=== PATIENT | male | born 1945 | race Caucasian/White ===

== ENCOUNTER 2023-04-08 23:10 | Inpatient (IN) | payer OTHER, SELFPAY ==
[2023-04-08 20:51] VITALS: BP 132/61
[2023-04-08 20:56] VITALS: BP 132/61
[2023-04-08 21:00] VITALS: BP 135/90
[2023-04-08 21:01] VITALS: BMI 25.5
[2023-04-08 21:07] LABS: % Basophils 0.5 % (0-2); % Eosinophils 0.2 % (0-6); % Immature Granulocytes 0.4 % (0-0.5); % Lymphocytes 16.8 % (20.5-51.1); % Monocytes 8.1 % (1.7-9.3); Absolute Basophils 0.1 10^3/uL (0-0.2); Absolute Lymphocytes 1.6 10^3/uL (1.2-3.4); Absolute Monocytes 0.8 10^3/uL (0.1-0.6); Absolute Neutrophils 7.1 10^3/uL (1.4-6.5); Hematocrit 42.3 % (39.0-52.0); Hemoglobin 15.4 g/dL (13.0-18.0); Mean Corp Hgb Conc. 36.4 g/dL (33.0-37.0); Mean Corpuscular Hgb 34.1 pg (27.0-31.0); Mean Corpuscular Volume 93.6 fL (80.0-94.0); Mean Platelet Volume 10.8 fL (7.4-10.4); Nucleated Red Blood Cells % 0 % (-); Platelet Count 178 10^3/uL (130-400); Red Blood Cell Count 4.52 10^6/uL (4.70-6.10); Red Cell Dist. Width 13.8 % (11.5-14.5); White Blood Cell Count 9.6 10^3/uL (4.8-10.8)
[2023-04-08 21:24] LABS: ALT (SGPT) 88 U/L (0-50); AST (SGOT) 69 U/L (17-59); Albumin 3.9 g/dl (3.5-5.0); Alkaline Phosphatase 64 U/L (38-126); Blood Urea Nitrogen 48 mg/dl (9-20); Calcium 9.3 mg/dl (8.4-10.2); Carbon Dioxide 22 mmol/L (22-30); Chloride 95 mmol/L (98-107); Estimated Creatinine Clearance 27 ml/min; Glucose 230 mg/dl (70-99); Potassium 2.9 mmol/L (3.5-5.1); Sodium 134 mmol/L (135-145); Total Bilirubin 0.9 mg/dl (0.2-1.3); Total Protein 6.5 g/dl (6.3-8.2); eGFR 31.82
[2023-04-08 21:26] LABS: Depakane 91.1 ug/ml (50.0-120.0)
--- NOTE | 2023-04-08 21:29 | ED.GENMED ---
History of Present Illness
General
Chief Complaint: Seizure
Source: patient
Exam Limitations: none
Time Seen by Provider: 04/08/23 21:05
Nursing documentation reviewed up to this point in time: agreed with
Travel History
Have you had any contact with someone who has COVID-19?: No
Do you have any symptoms of coronavirus? Fever > 100 degrees, chills, cough, shortness of breath, sore throat, loss of taste or smell, muscle aches, or headache?: No
History of Present Illness
History of Present Illness:
Patient with history of seizure disorder, presents to ED secondary to sudden onset of nausea and vomiting with confusion, noted by family members this evening. Per family, after dinner, patient was being assisted to his bedroom, secondary to
ongoing gait abnormality, had sudden onset of vomiting, with his eyes rolled backwards, and flaring his arms. Patient never lost consciousness. Patient states that he does recall the event. Denies recent illness. Denies recent change in
medications or diet. Patient is being followed by Dr. Cheema, neurology, secondary to ongoing seizure since September 2022, attributed to potential alcohol use in the past. Since then, patient also has had progressive weight loss with decreased
appetite and loss of balance, along with resting tremor.
Past History
Past History
ED Past Medical History: Cancer (Prostate), HTN, Seizures, Psychiatric (PTSD, anxiety, intentional overdose March 2022) and Other (Pulseless electrical activity March 2022)
ED Past Surgical History: Urological (Prostatectomy) and Other (Hernia repair)
Social History
Tobacco: Former smoker
Alcohol: Former
Drug: None
Personal:
Living: with family
Employment: Retired
Family History
Family History: Other (Reviewed and noncontributory)
Review of Systems
Review of Systems
Allergies reviewed?: Yes
All Other Systems: ROS reviewed and negative except as documented in HPI and ROS
Constitutional: Reports no symptoms
Respiratory: Reports no symptoms
Cardiac: Reports no symptoms
ABD/GI: Reports nausea and vomiting; Denies abdominal pain or diarrhea
: Reports no symptoms
Musculoskeletal: Reports no symptoms
Skin: Reports no symptoms
Neurological: Reports no symptoms
Phy Exam
Physical Exam
Physical Exam:
Physical Exam
General: no apparent distress, not acutely ill. afebrile
Head: nc/at. eomi
Neck: supple. no meningeal signs.
Heart: s1/s2 regular rate and rhythm, no murmur. equal radial pulses.
Lungs: no acute respiratory distress. clear bilaterally
Abdomen: normal bowel sounds. not tender.
Neuro: alert and oriented. no focal neurological deficits. resting tremor noted.
Skin: no rash
Psychiatric: well kept. interactive and cooperative
Extremities: no edema. no calf tenderness.
Course
Orders/Labs/Results
Orders:
Orders
04/08/23 20:55
Electrocardiogram (*1) Urgent
Reason for Study: Other
Other Reason for Exam: seizure
04/08/23 20:56
EKG- Treatment ONCE
04/08/23 20:57
Complete Blood Count/With Diff Urgent
Comprehensive Metabolic Panel Urgent
Creatine Phosphokinase Urgent
Comment: ADD ON
Erythrocyte Sed Rate Urgent
Comment: ADD ON
Magnesium Urgent
04/08/23 21:01
Valproic Acid Level [Depakane] Urgent
04/08/23 21:39
Add On- LAB Urgent
Tests Added?: magnesium
04/08/23 22:17
0.9% Sodium Chloride 1000 ml [Nss] 1,000 ml IV BOLUS
Potassium Chloride [KCl] 40 meq PO NOW STA
04/08/23 22:51
Admit/Transfer Patient As Directed
Co-Sign Provider:
Level of Care: Inpatient admission
Assign to:: Telemetry
Physician / Group: Simone
Diagnosis: DONNY, Hypokalemia, Seizure disorder
Reason for Telemetry: Arrhythmia
Date to Stop Telemetry: 04/11/23
Time to Stop Telemetry: 11:00
Reason for Hospitalization: DONNY, Hypokalemia, Seizure disorder
Expected length of stay greater than two midnights?: Yes
ELOS- Estimated Length of Stay in days: 2
I certify the patient meets the requirements for IP care: Yes
04/08/23 22:59
Code Status As Directed
Resuscitation Status: Do not resuscitate
Reached after discussion with pt or family/Healthcare POA: Yes
Lactic Acid Urgent
04/08/23 23:00
DNR Bracelet Application ONCE
04/09/23 00:18
Acetaminophen [Tylenol] 650 mg PO Q4HPRN PRN
KCl 40 Meq/0.9%Sodchl 1000 ml [NSS with KCL 40 MEQ] 40 meq in 1,000 ml IV 125 mls/hr
Lorazepam [Ativan] 1 mg IV Q4HPRN PRN
Olanzapine [Zyprexa Zydis (Orally Disintegrating)] 2.5 mg PO Q6HPRN PRN
04/09/23 00:18
Consult Notification Routine
Specialty to Notify: Gastroenterology
Date consulting provider notified: 04/09/23
Time consulting provider notified: 08:15
Notified:: Provider
GASTROINTESTINAL CONSULT Routine
Consulting Provider: Demi Tanner
Was physician already notified: No
Reason for consult: GI Bleed
NEUROLOGY CONSULT Routine
Consulting Provider: Gabino Cheema
Was physician already notified: Yes
Reason for consult: Seizure disorder, Movement disorder
Activity As Directed
Activity Level: Ambulate
With Assistance
Bladder Scan As Directed
Follow Bladder Retention/Intermittent Cath Algorithm?: Yes
PRN if no void in __ hours: 6
Frequency: Per Retention Algorithm
If Bladder Scan Result >: 400
then:: Straight cath
EKG with chest pain [ECG as needed] As Directed
ECG as needed for:: Chest Pain
Hemetest Stools As Directed
I/O [Intake/ Output] As Directed
Frequency: Per unit guidelines
Neurological Checks As Directed
Frequency: q4h
Orthostatic Vital Signs As Directed
Orthostatic VS Frequency: BID
Pneumatic Compression Sleeves As Directed
Type: Knee high
Precautions As Directed
Type of Precautions: Seizure
Straight Cath As Directed
Frequency: Per Retention Algorithm
Additional Instructions: straight cath as needed per acute urinary retention algorithm for 24 hrs
Additional Instructions: for bladder scan greater than 400 mL
Vital Signs As Directed
Frequency: Per unit guidelines
Weight As Directed
Frequency: Daily
Oxygen Therapy [O2 Therapy] [RESP] Routine
Titrate/Wean O2 to maintain O2 sat greater than (%): 94
Ot Eval And Treat Routine
PT Consult [Pt Eval And Treat] Routine
Activity Level: Ambulate
With Assistance
DX Deep Vein Thrombosis Video Routine
04/09/23 05:25
Urinalysis Reflex To Culture Routine
Date Specimen was Collected: 04/09/23
Time Specimen was Collected: 05:20
04/09/23 Breakfast
Regular
At Your Request: Full Participation
04/09/23 06:11
Complete Blood Count/No Diff IN AM
Magnesium IN AM
TSH Reflex To Free T4 Routine
04/09/23 08:00
Cyanocobalamin [Vitamin B-12] 1,000 mcg PO DAILY
Divalproex Extended Rel. 24 Hr [Depakote ER (24 Hr Release)] 750 mg PO BID
Escitalopram Oxalate [Lexapro] 10 mg PO DAILY
Lacosamide [Vimpat] 200 mg PO BID
Pantoprazole [Protonix IV] 40 mg IV BID
04/11/23 11:00
DC Protocol for Telemetry ONCE
Abnormal Lab Results
04/08/23
20:57
RBC 4.52 L 10^6/uL
(4.70-6.10)
MCH 34.1 H pg
(27.0-31.0)
MPV 10.8 H fL
(7.4-10.4)
Absolute Neuts (auto) 7.1 H 10^3/uL
(1.4-6.5)
Absolute Monos (auto) 0.8 H 10^3/uL
(0.1-0.6)
Lymphocytes % 16.8 L %
(20.5-51.1)
Sodium 134 L mmol/L
(135-145)
Potassium 2.9 L mmol/L
(3.5-5.1)
Chloride 95 L mmol/L
(98-107)
BUN 48 H mg/dl
(9-20)
Creatinine 2.1 H mg/dL
(0.7-1.3)
Glucose 230 H mg/dl
(70-99)
AST 69 H U/L
(17-59)
ALT 88 H U/L
(0-50)
04/08/23 20:57
04/08/23 20:57
Vital Signs
Initial and Last Documented VS:
Initial Vital Signs
Temp Pulse Resp BP Pulse Ox
97.5 F 73 22 132/61 98
04/08/23 20:51 04/08/23 20:51 04/08/23 20:51 04/08/23 20:51 04/08/23 20:51
Last Documented Vital Signs
Temp Pulse Resp BP Pulse Ox
98 F 64 17 130/67 96
04/10/23 11:44 04/10/23 11:44 04/10/23 11:44 04/10/23 11:44 04/10/23 11:44
MDM/Problems Addressed
MDM/Problems Addressed:
Prior to arrival, patient likely had vagal episode from vomiting, not a seizure episode.
History/exam consistent with likely ARF and electrolyte abnormality due to dehydration from poor oral intake. In addition, patient with sig. tremor along with gait abnormality which will require further evaluation, as patient is high risk for fall
at home. Pt will be admitted for iv hydration, electrolyte repletion as well as likely PT/OT evaluation.
*EKG
Interpreted by ED Provider?: Yes
EKG Intrepretation Date: 04/08/23
Heart Rate: 70
Rate: normal
Rhythm: sinus
[place]: normal axis
Interval: normal interval
*Critical Care Note
Total Time (30-74mins, 75-104mins- exclusive of procedures): Not Applicable
ED Attending Note
-
Portions of this chart may have been created with voice recognition software.� Occasional wrong word or��sound alike� substitutions may have occurred due to the inherent limitations of voice recognition software.
Discharge Plan
Departure
Patient Disposition: Admit
Date of Disposition: 04/08/23
Time of Disposition: 22:02
Admit to: Med/Surg
Presentation/result/management discussed w/ accepting MD/DO: Hospitalist
Discharge Problem:
Hypokalemia, Acute renal failure, Ataxia, Tremor
Interventions
Interventions:
*Risk Screen - Suicide Last Done: 04/08/23 21:01
*General Assessment Last Done: 04/08/23 21:01
*Neglect/Abuse Screening Last Done: 04/08/23 21:01
ED- Fall Risk Assessment Last Done: 04/09/23 00:00
*ED COVID-19 Vaccine History Last Done: 04/08/23 21:01
*Nursing Disposition Last Done: 04/09/23 00:00
DC-Ovkqqx-Clanixktlm Assessment Last Done: 04/08/23 21:03
ED- Cardiac Assessment Last Done: 04/08/23 21:03
ED- Neurological Assessment Last Done: 04/08/23 21:03
ED- Pulmonary Assessment Last Done: 04/08/23 21:03
Discharge Date and Time
Discharge Date/Time: 04/09/23 00:04
[2023-04-08 22:00] VITALS: BP 118/53
[2023-04-08] MEDS: KCL 40 MEQ PO (22:23)
[2023-04-08] MEDS: NSS 1000 IV (22:25)
[2023-04-08 23:00] VITALS: BP 131/60
--- NOTE | 2023-04-08 23:02 | HPS.HSE ---
Family Physician
-
Family Physician: Ramona Mckenzie
Chief Complaint
-
Weakness, Seizure, N/V Blood
History of Present Illness
Patient is a 77y M with PMH significant for PTSD, seizure disorder and gait dysfunction who presents to ED for evaluation of weakness / mobility disorder, seizure activity and N/V this evening. History obtained primarily from at the bedside.
Patient initially developed seizure disorder in September 2022. No history prior to this. Since that time he has become progressively more weak with difficulty ambulating and increased confusion overall.
He has had an episode of seizure about once per month since that time.
About 2 weeks ago his lacosamide dose was decreased. He had a seizure about one week later and his dose was returned to prior levels.
denies any other recent meed changes, additions, etc.
For the past week or so, patient has been unable to stand on his own - specifically following dinner.
This evening, his family helped him up after dinner and into the bathroom with several people to assist and some moderate difficulty.
Once they ultimately got him into bed, he began to sweat profusely and his eyes 'rolled back' similar to prior seizures that he has had. Following this he had an episode of N/V of grossly bloody emesis.
denies any prior history of emesis / hematemesis.
EMS was called and patient brought to the ED for further evaluation.
At present he is resting comfortably. He has no specific complaints. states that he appears to be at his usual / recent baseline at present.
Medical History
Past Medical History
Past Medical History: Reports Other
Additional Past Medical History:
ASCVD / PAD
Hypertension
Cardiac Arrest (03/2022) - secondary to overdose of BZDs / Bupropion
History of Alcohol Use Disorder
Prostate Cancer
PTSD
Cognitive Impairment
Movement Disorder
Past Surgical History: Reports Other
Additional Past Surgical History:
Prostatectomy
Herniorrhaphy
Social History
Tobacco: Former Smoker (Quit smoking about 8y ago. > 50 pack years total use.)
Alcohol: Former (History of chronic alcohol use disorder. Sober x 10 years.)
Drug: Marijuana (Medical marijuana vaping.)
Personal:
Living: With Family
Family History
Family History: Not pertinent
Allergies / Home Medications
Allergies reflects when Allergies were last updated in [facility].
Home Medications with original date entered in [facility]
Allergy/Medication List:
Allergies
Allergy/AdvReac Type Severity Reaction Status Date / Time
morphine Allergy Itching Verified 04/08/23 20:51
shellfish derived Allergy Tongue Verified 04/08/23 20:51
Swelling
Dgbwlqw-UUM-KlQ Reductase Allergy Swelling Verified 04/08/23 22:33
Inhibitor
[Driepnc-Yrq-Bvd Reductase
Inhibitor]
Home Medications
Medical Marijuana 1 puff inhalation DAILYPRN PRN anixety/stess 09/12/22
alprazolam 0.5 mg tablet (Xanax) 0.5 mg PO TIDPRN PRN anxiety 09/12/22
amlodipine 10 mg tablet 10 mg PO DAILY Blood Pressure 09/12/22
ascorbic acid (vitamin C) 500 mg tablet (Vitamin C) 500 mg PO DAILY Supplement 09/12/22
aspirin 81 mg tablet,delayed release 81 mg PO DAILY Heart Disease/Condition 09/12/22
cyanocobalamin (vitamin B-12) 1,000 mcg tablet 1,000 mcg PO DAILY Supplement 09/12/22
hydrochlorothiazide 25 mg tablet 25 mg PO DAILY Fluid Retention/Swelling 09/12/22
docusate sodium 100 mg capsule (Colace) 200 mg PO DAILYPRN PRN constipation 11/28/22
psyllium 1 packet PO DAILY Gastrointestinal Issue 11/28/22
sildenafil 100 mg tablet 100 mg PO DAILYPRN PRN ed 11/28/22
lacosamide 200 mg tablet (Vimpat) 200 mg PO BID 30 days #60 tabs 11/30/22
divalproex 250 mg tablet,extended release 24 hr (Depakote ER) 250 mg PO BID #60 tabs 01/04/23
divalproex 500 mg tablet,extended release 24 hr (Depakote ER) 500 mg PO BID #60 tabs 01/04/23
escitalopram oxalate 10 mg tablet 10 mg PO DAILY 04/08/23
Review of Systems
-
History Source: Patient and Family
Constitutional: Reports Fatigue; Denies Fever or Chills
EENT: Denies Sore Throat or Runny Nose
Respiratory: Denies Cough or Trouble Breathing
Cardiac: Reports Diaphoresis and Syncope; Denies Chest Pain or Palpitations
Abdomen/GI: Reports Nausea, Vomiting and Other (Hematemesis); Denies Abdominal Pain, Bloody Stools or Black Stools
: Denies Dysuria, Frequency or Flank Pain
Musculoskeletal: Denies Joint Pain, Muscle Pain or Edema
Neurological: Reports Weakness; Denies Dizzy or Headache
Psych: Denies Depression or Anxiety
Physical Exam
Vital Signs
Vital Signs
Temp Pulse Resp BP Pulse Ox
97.5 F 97 24 118/53 81
04/08/23 20:51 04/08/23 22:15 04/08/23 22:15 04/08/23 22:00 04/08/23 21:30
Physical Exam
General: Other (77y M in no acute distress.)
HEENT: Moist mucous membranes, PERRLA and Other (No tongue lacerations / mucosal lesions.)
Respiratory: Clear; No Wheezes, Rales or Rhonchi
Cardiac: S1/S2 and Regular Rhythm; No Murmur
GI: Soft, Non Tender, Non Distended and Normal Bowel Sounds
Musculoskeletal: No Clubbing, No Cyanosis and No Edema
Neuro: Awake and Alert; No Oriented
Psych: No Agitated
Laboratory Results
-
04/08/23 20:57
04/08/23 20:57
Laboratory Results
Total Bilirubin 0.9 mg/dl (0.2-1.3) 04/08/23 20:57
AST 69 U/L (17-59) H 04/08/23 20:57
ALT 88 U/L (0-50) H 04/08/23 20:57
Alkaline Phosphatase 64 U/L (38-126) 04/08/23 20:57
Impression/Plan
-
A/P: Patient is a 77y M with PMH significant for PTSD, hypertension and seizure disorder who presents to ED for evaluation of weakness, seizure activity and hematemesis.
Seizure Disorder
- Admit for further evaluation and treatment.
- Awake and interactive at present.
- Episode at home this evening similar to prior seizure episodes.
- Continue current AEDs.
- Ativan as needed for additional / breakthrough seizures.
- Neurology evaluation for assessment / med adjustments.
- Check CPK to rule out rhabdo component of current DONNY, etc (see below).
DONNY
Hypokalemia
Anion Gap Metabolic Acidosis
- SCr = 2.1 compared to known baseline of 1.1.
- No significant volume losses reported by family (diarrhea, recurrent emesis, etc).
- PO potassium give in the ED. Mg level is acceptable.
- Continue IVFs with potassium replacement.
- Hold HCTZ.
- Follow for improvement in labs / lytes.
- Bladder scan protocol / straight cath if needed.
- Check lactate level and CPK given apparent seizure.
Hematemesis
- N/V of gross blood x 1 episode this evening.
- clear that this was emesis and not 'spitting up' bloody material.
- No evidence of tongue lac / mucosal injury from seizure activity.
- IV PPI BID.
- GI evaluation.
- Patient does have significant (past) history of EtOH use disorder.
- Heme test stools.
- Monitor for any further episodes of emesis / hematemesis.
Benign Hypertension
- Stable. Hold HCTZ as noted above given DONNY, hypokalemia.
- Adjust med regimen as needed for BP control.
PTSD
- Stable. Continue current Lexapro dosing.
- Zyprexa as needed for acute agitation during hospital stay.
Movement Disorder
Cognitive Impairment
- states that symptoms have all been progressive since September / initial seizure diagnosis.
- She is concerned that his meds may be contributing to his mobility and memory issues.
- Seems to have Parkinsonian features with stiffness, immobility of inertia, etc.
- PT / OT evaluations.
- Neuro eval as noted above.
ASCVD
- Listed history of PAD, but no noted surgeries, etc.
- Hold ASA for now given hematemesis.
DVT Prophylaxis: SCDs
Code Status: DNR
[2023-04-08 23:17] LABS: Lactic Acid 1.6 mmol/L (0.7-2.0)
[2023-04-08 23:20] LABS: Creatine Phosphokinase 136 U/L (55-170)
[2023-04-09] VITALS (9 sets, daily range): BP systolic 114–154; BP diastolic 49–83; PULSE 80–104; O2SAT 97; BMI 24.1; BMI 24.2
[2023-04-09] MEDS: NSS with KCL 40 MEQ 1000 IV ×2 (01:04→07:54)
[2023-04-09 01:16] LABS: Erythrocyte Sed Rate 4 mm/hour (0-20)
--- NOTE | 2023-04-09 03:19 | PTCARENOTE ---
Pt admitted to room 338-2 from ED at approx 0030. Ambulated with assist x2 from stretcher to bed. coal getter placed, reading NSR. Pt is poor historian, only oriented to self. Pt is pleasant and states that it's 'September of 1973' and [facility] Admission questions completed with medical records on file. IVF initiated. Seizure pads unavailable, side rails wrapped in blankets for protection. Call urrutia within reach. DNR bracelet applied and fall risk bracelet
placed. Bed alarm activated for safety.
[2023-04-09 05:33] LABS: Urine Albumin Negative (Neg - Trace); Urine Bilirubin Negative (Negative); Urine Character Clear (Clear); Urine Color Yellow; Urine Glucose Negative (Negative); Urine Ketone 1+ (Negative); Urine Leukocyte Negative (Negative); Urine Nitrite Negative (Negative); Urine Occult Blood Negative (Negative); Urine Urobilinogen Negative (Neg - 1+)
[2023-04-09 06:46] LABS: Hematocrit 36.2 % (39.0-52.0); Hemoglobin 13.1 g/dL (13.0-18.0); Mean Corp Hgb Conc. 36.2 g/dL (33.0-37.0); Mean Corpuscular Hgb 34.7 pg (27.0-31.0); Mean Corpuscular Volume 95.8 fL (80.0-94.0); Mean Platelet Volume 11.5 fL (7.4-10.4); Platelet Count 126 10^3/uL (130-400); Red Blood Cell Count 3.78 10^6/uL (4.70-6.10); Red Cell Dist. Width 13.8 % (11.5-14.5); White Blood Cell Count 6.2 10^3/uL (4.8-10.8)
[2023-04-09 07:11] LABS: ALT (SGPT) 67 U/L (0-50); AST (SGOT) 49 U/L (17-59); Albumin 3.1 g/dl (3.5-5.0); Alkaline Phosphatase 48 U/L (38-126); Blood Urea Nitrogen 40 mg/dl (9-20); Calcium 8.5 mg/dl (8.4-10.2); Carbon Dioxide 20 mmol/L (22-30); Chloride 106 mmol/L (98-107); Direct Bilirubin 0.4 mg/dl (0.0-0.4); Estimated Creatinine Clearance 41 ml/min; Glucose 90 mg/dl (70-99); Magnesium 1.9 mg/dl (1.6-2.3); Potassium 3.5 mmol/L (3.5-5.1); Sodium 137 mmol/L (135-145); Total Bilirubin 0.9 mg/dl (0.2-1.3); Total Protein 5.4 g/dl (6.3-8.2); eGFR 51.77
--- NOTE | 2023-04-09 07:15 | CON.GI ---
Addendum entered and electronically signed by Demi Tanner MD 04/09/23 21:24:
I saw and examined the patient.
The WALKING DRAGLINE OPERATOR or PA's note was reviewed and I agree with the note.
Comment: 77-year-old male with history of seizure disorder, gait dysfunction, peripheral artery disease, history of alcohol abuse, prostate cancer presenting with 3 episodes of vomiting coffee-ground material which she reports was few days ago.
Denies any abdominal pain, nausea or vomiting. No heartburn or trouble swallowing. Mild constipation, denies any blood in the stool or black stool. No NSAID use. Previous anemia in 2022 with hemoglobin of 3.4, patient refused upper endoscopy and
colonoscopy evaluation at that time. Currently hemoglobin is in normal range.
-Coffee-ground emesis, rule out esophagitis, gastritis, ulcer disease versus other
Reviewed with patient the importance of upper endoscopy, patient at this point is refusing to get an upper endoscopy.
Okay for clear liquid diet.
Continue pantoprazole 40 mg IV twice daily
Monitor H&H and transfuse if needed.
Will review with patient's tomorrow again to see if patient is agreeable for endoscopy evaluation.
Original Note:
Consultation
-
Date/Time Consultation Requested: 04/09/23 0020
Date/Time Consultation Performed: 04/09/23 0950
Requesting Provider: Yunior Nichols DO
Performing Provider: KRISS Hilton, Demi Tanner MD
Reason for Consultation: hematemesis
Medical History
Chief Complaint / HPI
Chief Complaint: weakness, seizures, vomiting blood
History of Present Illness:
Pt is a 77yo with hx PTSD, seizure disorder, gait dysfunction with increased weakness with onset of seizure with nausea and vomiting and noted hematemesis. In reviewing with patient noted with vomiting about 1/2 dark brown material. He denies
constipation but later review with hospitalist no stools for 5 days. He denies hx dysphagia, GERD, abdominal pain, constipation blood or black in stools. Pt did not recall prior EGD or colonoscopy in past. Pt with prior evaluation last year for
hbg 3.4 noted and declined GI work up.
Past Medical History
Past Medical History: Cancer (prostate CA), HTN, Psychiatric (PTSD, cognitive impairment) and Other (ASCVD/PAD, cardiac arrest secondary to benzo/bupropion overdose, ETOH abuse, movement disorder, DDD, tremors )
Past Surgical History: Other (prostatectomy, hernia repair)
Social History
Tobacco: Former Smoker (last 12 years ago)
Alcohol: Former (last 12 years ago)
Drug: Marijuana (in past )
Personal:
Living: With Family
Employment: Retired
Family History
Family History: Other (pt denies family hx colon CA or polyps)
Allergies / Home Medications
Allergy/AdvReac Type Severity Reaction Status Date / Time
morphine Allergy Itching Verified 04/08/23 20:51
shellfish derived Allergy Tongue Verified 04/08/23 20:51
Swelling
Odptezi-UMU-AkH Reductase Allergy Swelling Verified 04/08/23 22:33
Inhibitor
[Ftaavhn-Qzm-Lqm Reductase
Inhibitor]
Medication Instructions Recorded
Medical Marijuana 1 puff inhalation DAILYPRN PRN 09/12/22
anixety/stess
alprazolam 0.5 mg tablet (Xanax) 0.5 mg PO TIDPRN PRN anxiety 09/12/22
amlodipine 10 mg tablet 10 mg PO DAILY Blood Pressure 09/12/22
ascorbic acid (vitamin C) 500 mg 500 mg PO DAILY Supplement 09/12/22
tablet (Vitamin C)
aspirin 81 mg tablet,delayed 81 mg PO DAILY Heart 09/12/22
release Disease/Condition
cyanocobalamin (vitamin B-12) 1,000 mcg PO DAILY Supplement 09/12/22
1,000 mcg tablet
hydrochlorothiazide 25 mg tablet 25 mg PO DAILY Fluid 09/12/22
Retention/Swelling
docusate sodium 100 mg capsule 200 mg PO DAILYPRN PRN constipation 11/28/22
(Colace)
psyllium 1 packet PO DAILY Gastrointestinal 11/28/22
Issue
sildenafil 100 mg tablet 100 mg PO DAILYPRN PRN ed 11/28/22
lacosamide 200 mg tablet (Vimpat) 200 mg PO BID 30 days #60 tabs 11/30/22
divalproex 250 mg tablet,extended 250 mg PO BID #60 tabs 01/04/23
release 24 hr (Depakote ER)
divalproex 500 mg tablet,extended 500 mg PO BID #60 tabs 01/04/23
release 24 hr (Depakote ER)
escitalopram oxalate 10 mg tablet 10 mg PO DAILY 04/08/23
Review of Systems
-
History Source: Patient and Other (left message for family to review )
Constitutional: Reports No Symptoms
EENT: Reports No Symptoms
Respiratory: Reports No Symptoms
Cardiac: Reports No Symptoms
Abdomen/GI: Reports Nausea, Vomiting and Constipated
: Reports No Symptoms
Musculoskeletal: Reports No Symptoms
Skin: Reports No Symptoms
Neurological: Reports Weakness
Endocrine: Reports No Symptoms
Hematologic/Lymphatic: Reports Bleeding
Vital Signs
Temp Pulse Resp BP Pulse Ox
98.3 F 70 17 114/55 97
04/09/23 04:11 04/09/23 04:11 04/09/23 04:11 04/09/23 04:11 04/09/23 04:11
Physical Exam
Exam
General: Other (awake and alert- forgetful)
HEENT: Normocephalic and Anicteric
Respiratory: Clear
Cardiac: Regular Rhythm
GI: Soft, Non Tender and Non Distended
Genito-urinary: No Costovertebral Tender
Musculoskeletal: No Clubbing and No Cyanosis
Skin: Warm and Dry
Neuro: Awake, Alert and Other (forgetful to questions, + tremors noted )
Psych: Calm
Results
WBC 6.2 10^3/uL (4.8-10.8) 04/09/23 06:11
Hgb 13.1 g/dL (13.0-18.0) 04/09/23 06:11
Hct 36.2 % (39.0-52.0) L 04/09/23 06:11
MCV 95.8 fL (80.0-94.0) H 04/09/23 06:11
Plt Count 126 10^3/uL (130-400) L D 04/09/23 06:11
Absolute Neuts (auto) 7.1 10^3/uL (1.4-6.5) H 04/08/23 20:57
Sodium 137 mmol/L (135-145) 04/09/23 06:11
Potassium 3.5 mmol/L (3.5-5.1) 04/09/23 06:11
Chloride 106 mmol/L (98-107) 04/09/23 06:11
Carbon Dioxide 20 mmol/L (22-30) L 04/09/23 06:11
BUN 40 mg/dl (9-20) H 04/09/23 06:11
Creatinine 1.4 mg/dL (0.7-1.3) H 04/09/23 06:11
Calcium 8.5 mg/dl (8.4-10.2) 04/09/23 06:11
Total Bilirubin 0.9 mg/dl (0.2-1.3) 04/09/23 06:11
AST 49 U/L (17-59) 04/09/23 06:11
ALT 67 U/L (0-50) H 04/09/23 06:11
Alkaline Phosphatase 48 U/L (38-126) 04/09/23 06:11
Prior GI Procedures:
EGD: none
Colonoscopy: none
Assessment / Plan
-
Pt is a 77yo with hx PTSD, seizure disorder, gait dysfunction with increased weakness with onset of seizure with nausea and vomiting and noted hematemesis. In reviewing with patient noted with vomiting about 1/2 dark brown material. He denies
constipation but later review with hospitalist no stools for 5 days. States prior ETOH and tobacco use 12 years ago. He denies hx dysphagia, GERD, abdominal pain, constipation blood or black in stools. Pt did not recall prior EGD or colonoscopy
in past. Pt with prior evaluation last year for hbg 3.4 noted and declined GI work up. Denies NSAID use. No hx liver issues in past.
-hematemesis
-seizure disorder with seizure possible prior to admission
-mild confusion on exam
-DONNY on admission
-constipation
-prior anemia with decline of GI work up in 2012
-tremors
-mild thrombocytopenia
-hypokalemia - improved
other medical problems:
-PTSD
-gait dysfunction
-ASCVD/PAD
-hx cardiac arrest secondary to benzo/bupropion overdose
-ETOH abuse
-movement disorder
-DDD
PLAN:
Etiology of hematemesis unclear -- PUD, ectasia, mass, esophagitis vs other
no know hx liver disease in past but prior ETOH use. Platelets mildly low, albumin 3.1, ALT miimal elevation will add INR
t/c EGD in AM
add obstruction series to rule out unlderlying constiipation as per pt no stools in 5 days
pt noted with confusion and tremors on exam ( ? baseline)
will add tox screen with hx OD in past, ETOH level and ammonia level
left message for to verify history
trend CBC
ok for diet as tolerated
cont PPI BID
NSAID and ETOH avoidance
consider eventual colonoscopy with prior anemia last year and declined testing
-
-
Thank you for consultation and allowing me to participate in the patient's care. Please call the [facility] during the after hours with any questions or concerns.
[2023-04-09 07:25] LABS: TSH Reflex To Free T4 0.87 uIU/ml (0.47-4.68)
[2023-04-09] MEDS: VIMPAT 200 MG PO ×2 (07:53→20:44)
[2023-04-09] MEDS: DEPAKOTE ER (24 HR RELEASE) 750 MG PO ×2 (07:53→20:44)
[2023-04-09] MEDS: VITAMIN B-12 1000 MCG PO (07:53)
[2023-04-09] MEDS: LEXAPRO 10 MG PO (07:53)
[2023-04-09] MEDS: PROTONIX IV 40 MG IV ×2 (07:53→20:45)
[2023-04-09] MEDS: NSS (PRESERVATIVE FREE) 10 ML IV ×2 (07:54→20:45)
--- NOTE | 2023-04-09 08:22 | CON.NEURO4 ---
Addendum entered and electronically signed by Kartik Rosales MD 04/09/23 13:20:
Orthostatics abnormal.
Will cancel >1 hour EEG
Add abdominal binder, reconsider antiseizure medications as outpatient.
Addendum entered and electronically signed by Kartik Rosales MD 04/09/23 10:14:
Studies reviewed.
I have personally examined the patient. I reviewed and agree with the DEVELOPMENT ENGINEER's Note.
My addenda:
Awake, alert, interactive. No acute distress.
Speech hesitant. Incorrect month and year provided. Mildly hypophonic
Follows 2-step requests w/ severe difficulty. Distal right greater than left hand rhythmic tremor with action and less at rest. No*6
Extra-ocular movements grossly intact.
Facial movements full and symmetric. Hearing intact to normal conversational volume.
Normal UE movements bilaterally.
Neck: full ROM.
Chest: no dyspnea
Heart: no JVD
Ext: (-) Clubbing, (-) Cyanosis, (-) Edema
IMPRESSIONS/RECOMMENDATIONS:
Abrupt onset of syncope with baseline tremors, cognitive decline. The event took place despite the patient having had routine antiseizure use and the event was described as eyes rolling back without tongue biting, loss of bowel or bladder control.
Differential diagnosis includes dementia with parkinsonism, orthostatic hypotension, seizure
Check orthostatic blood pressures
Recheck EEG to hopefully reduce further the possibility of seizure as a diagnosis
Continue newly initiated lacosamide 200 mg twice a day
Continue valproic acid 750 mg daily
Provide thiamine 100 mg daily
Provide cyanocobalamin
Provide IV iron if ferritin < 50
D/W patient
All questions answered.
Will continue to follow pending results, then as outpatient.
Corrected billing codes: Syncope, PTSD, history alcohol abuse
Original Note:
Documented by User: Mandy Delgado NP 04/09/23 09:23
Consultation - Neurology 4
-
CONSULTING PHYSICIAN: Kartik Rosales MD
REFERRING PHYSICIAN: Hospitalists/Dr. Nichols
DICTATED BY: KRISS Matthew
DATE/TIME OF REQUEST: 04/09/23
DATE/TIME OF CONSULTATION: 04/09/23
Reason for Consultation: Seizure
History of Present Illness:
This is a 77-year-old male who has presented to the hospital with report of seizure at home. Patient is known to our Neurology service and is followed by Dr. Cheema as an outpatient.
From previous encounter with Dr. Cheema on 11/28/22:
'Patient is a 77-year-old man with a past medical history of significant psychiatric history with alprazolam and bupropion overdose, depression, PTSD, former alcohol abuse, possible seizure presented to hospital with status epilepticus.
Patient's provides history and reports he has not had any recent medication changes or recent illnesses went to bed yesterday feeling fine yesterday has been feeling fine.� Around 5:30 AM this morning patient noted to have convulsive
generalized seizure activity with loss of consciousness and this persisted for around 10 to 15 minutes before EMS arrived and provided 2 mg IM midazolam which stopped the seizure activity.� He had recurrent seizure activity in the ambulance and
received 2 mg IV lorazepam which stopped the seizure activity.� In the ER he underwent CT head scan of the head and was given 1000 mg IV levetiracetam and then 300 mg IV lacosamide.� Patient's somnolent and postictal at this time not able provide
history.
Patient had recent hospitalization after questionable seizure activity on 09/12 there was concern on whether or not this was seizure versus night terror versus stress related event, he ultimately left AMA was not felt he would need to necessarily be
started on chronic antiseizure medications.� Psychiatric consultation felt that patient would not need to necessarily be stopped on bupropion given low-dose at 150 mg and at low-dose generally bupropion not highly contributory to seizure.'
From outpatient eCW Telephone encounter:
'Gabino Cheema 02/25/2023 12:06:57 PM > Patient around 3-4 weeks ago started to have walking issues with some mild left leg weakness noted when getting in and out of bed, some speaking not quite normally and confusion, stable since about 3-4 weeks
ago when it seemed to come on fairly suddenly, no headaches, has some mild back pain no urinary incontinence or retention or bowel incontinence, left arm is normal, no facial asymmetry. Will order MRI of the brain and L spine as some concern for a
stroke that could have happened 3-4 weeks ago versus a lumbar radiculopathy. No seizures since January 04 that led to ED visit and is on 750 mg Valproic acid and Lacosamide 200 mg BID.'
Patient completed MRI brain and lumbar testing on 03/26/23 due to new report of LLE weakness, abnormal speech, and confusion. MRI brain was negative for acute infarct/abnormality. MRI lumbar spine demonstrates degenerative disc disease worse at L2-L3
with foraminal stenosis, disc bulge at right L5 nerve root, but the left leg was the involved limb. He was then evaluated in the Neurology office on 03/27/23 and the decision was made to gradually wean him off of lacosamide in the hop of improving
his cognition and tremor. Lacosamide wean plan: 100 mg AM and 200 mg PM for 2 weeks. Then 100 mg BID for 2 weeks. Then 100 mg qhs for 2 weeks, then stop.
Today (04/09/23):
Yesterday evening (04/08/23) following dinner, patient was noted to have sudden onset of diaphoresis followed by bloody vomiting, his eyes rolled backwards, and his arm flailed. His family reports he did not lose consciousness, patient does not
recall this event. There was no tongue biting or urinary/bowel incontinence noted. In the ER, patient's Lacosamide dose was increased back up to 200mg BID and Depakote 750mg daily was continued. Valproic acid level is 91.1. He notably has an DONNY and
IVF were administered. Patient reports that he had a seizure yesterday, but describes going to several fireworks shows that induced the event. He is confused/poor historian and this information has been obtained from medical records. Currently, He
denies any headache, dizziness, vision changes, speech/swallow difficulty, nausea, numbness, chest pain, palpitations, and shortness of breath. He endorses chronic issues with nondescript weakness.
Past Medical History: Cardiac arrest 03/2022 secondary to intentional overdose with benzodiazepines/bupropion, PTSD, depression, anxiety, seizure disorder, former heavy alcohol use, HTN, HLD, PAD, prostate cancer, cognitive impairment, movement
disorder
Surgical History: Prostatectomy, herniorrhaphy
Family History: Mother- stomach cancer
Social History: Former tobacco and alcohol usage. +Medical marijuana.
Allergies: Shellfish, statins, morphine.
Home Medications: See below.
Review of Symptoms:
Patient denies any fever, headache, chest pain, shortness of breath, GI or symptoms.
�Per the HPI.�All systems are reviewed negative except above.
Physical Exam:
The patient is afebrile, abdomen is nondistended, breathing is unlabored, skin is warm and dry, no edema.
Neurologic Examination:
The patient is awake, alert. Not oriented to month, year, or situation. Oriented to place only. He is able to follow one-step commands and answer questions appropriately. Severe difficulty with two-step commands. There is no aphasia. Speech is
hypophonic and tremulous at times when facial tremor is exacerbated. On cranial nerve assessment, pupils are 3 mm bilateral, round and reactive to light and accommodation. Visual arora are full. Extraocular movements are intact. Facial sensations
are intact and bilaterally symmetrical, there is no facial asymmetry. Hearing is intact bilaterally to normal conversation volume. Tongue palate and uvula are midline. Sternocleidomastoid strengths are full bilaterally. Motor strengths are 5/5
bilateral upper and lower extremities on medical research [place] scale. There is no drift. Low amplitude semi rhythmic tremor in distal bilateral upper extremities at rest and with exertion right>left. Low amplitude semi rhythmic tremor also in
face and bilateral feet. Deep tendon reflexes are 2+ bilateral upper and lower extremities and Babinski is absent bilaterally. There was no extinction noted on double simultaneous stimulation. Coordination is intact by finger to nose bilaterally.
Lab Results: See below.
Neuro Imaging:
1. MRI Brain 03/26/23: Limited examination due to patient motion during the exam. Fast scan imaging is performed. Moderate diffuse volume loss. Mild to moderate leukoaraiosis. No acute intracranial process. Mild right mastoiditis.
2. MRI Lumbar Spine 03/26/23: Most significant degenerative disk and joint disease at L2-3, with severe lateral stenosis impinging upon the descending nerve roots bilaterally, with associated moderate central canal stenosis, significant endplate
sclerosis and Modic changes particularly on the left and a shallow central disk herniation. Moderate disk bulge at L4-5 with slight right central prominence impinging upon the descending right L5 nerve root. Incidental note is made of small
lobulated cystic appearing fluid signal intensity structures just anterior to the right lower ribs in the posterior aspect of the peritoneal space, nonspecific finding. Likely represents small ganglion cysts. These measure approximately 1 cm in
greatest dimension. No adjacent edema. No adjacent mass effect.
Differentials for the patient's presentation include:
1. Episode more consistent with vasovagal event in the setting of vomiting, eyes rolling back more consistent with this than seizure
2. Seizure possible given recent reduction in lacosamide dosing, although less likely given diaphoresis, vomiting, and lack of tongue bite/incontinence.
3. DONNY
4. Bloody emesis
Patient has the following risk factors for their symptoms: Recent reduction in lacosamide, vomiting, DONNY, bloody emesis
Recommendations:
-Continue lacosamide 200mg BID and Depakote 750mg daily.
-Check orthostatic vital signs.
-Consider outpatient KATY scan given parkinsonian symptoms.
-Seizure precautions.
-PT/OT/ST evaluations.
-Zyprexa PRN agitation.
-Lorazepam PRN seizure activity.
-Initiate thiamine 100mg PO daily.
-DVT prophylaxis.
Discussed patient care with: Bobby Garcia, the patient
Vital Signs and Labs
-
Vital Signs and Labs:
Vital Signs
Temp Pulse Resp BP Pulse Ox
97.7 F 69 18 137/61 99
04/09/23 07:00 04/09/23 07:00 04/09/23 07:00 04/09/23 07:00 04/09/23 07:00
Lab Results
04/09/23 06:11
04/09/23 06:11
Sodium 137 mmol/L (135-145) 04/09/23 06:11
Potassium 3.5 mmol/L (3.5-5.1) 04/09/23 06:11
BUN 40 mg/dl (9-20) H 04/09/23 06:11
Glucose 90 mg/dl (70-99) 04/09/23 06:11
Calcium 8.5 mg/dl (8.4-10.2) 04/09/23 06:11
Medications
-
Active Medications
Generic Name Dose Route Start Last Admin
Trade Name Freq PRN Reason Stop Dose Admin
Acetaminophen 650 mg 04/09/23 00:18
Acetaminophen 325 Mg Tablet PO 05/07/23 00:17
Q4HPRN PRN
Mild Pain / Temp > 101
Cyanocobalamin 1,000 mcg 04/09/23 08:00 04/09/23 07:53
Cyanocobalamin 1,000 Mcg Tablet PO 05/07/23 07:59 1,000 mcg
DAILY OFELIA Administration
Divalproex Sodium 750 mg 04/09/23 08:00 04/09/23 07:53
Divalproex 250 Mg Extended Release (24 Hr) Tablet PO 05/07/23 07:59 750 mg
BID OFELIA Administration
Escitalopram Oxalate 10 mg 04/09/23 08:00 04/09/23 07:53
Escitalopram 10 Mg Tablet PO 05/07/23 07:59 10 mg
DAILY OFELIA Administration
Potassium Chloride/Sodium Chloride 40 meq in 1,000 mls @ 125 mls/hr 04/09/23 00:18 04/09/23 07:54
Nss With Kcl 40 Meq IV 1,000 mls
.Q8H OFELIA Administration
Lacosamide 200 mg 04/09/23 08:00 04/09/23 07:53
Lacosamide (Vimpat) 100 Mg Tablet PO 05/07/23 07:59 200 mg
BID OFELIA Administration
Lorazepam 1 mg 04/09/23 00:18
Lorazepam 2 Mg/Ml Vial IV 05/07/23 00:17
Q4HPRN PRN
Seizure activity
Olanzapine 2.5 mg 04/09/23 00:18
Olanzapine (Orally-Disintegrating) 5 Mg Tablet PO 05/07/23 00:17
Q6HPRN PRN
Agitation
Pantoprazole Sodium 40 mg 04/09/23 08:00 04/09/23 07:53
Pantoprazole Sodium 40 Mg/10 Ml Vial IV 05/07/23 07:59 40 mg
BID OFELIA Administration
Sodium Chloride 0 flush 04/09/23 01:00
Sodium Chloride 0.9% (Flush) Syringe IV 05/07/23 00:59
PER PROTOCOL OFELIA
Sodium Chloride 10 ml 04/09/23 08:00 04/09/23 07:54
Sodium Chloride 0.9% (Preservative Free) 10 Ml Vial IV 05/07/23 07:59 10 ml
BID OFELIA Administration
Sodium Chloride 0.5 ml 04/09/23 01:49
Nss (Pf) 10 Ml Vial For Ativan 1 Mg Dose IV 05/07/23 01:48
Q4HPRN PRN
IV LORAZEPAM DILUTION
Home Medications
Medication Instructions Recorded
Medical Marijuana 1 puff inhalation DAILYPRN PRN 09/12/22
anixety/stess
alprazolam 0.5 mg tablet (Xanax) 0.5 mg PO TIDPRN PRN anxiety 09/12/22
amlodipine 10 mg tablet 10 mg PO DAILY Blood Pressure 09/12/22
ascorbic acid (vitamin C) 500 mg 500 mg PO DAILY Supplement 09/12/22
tablet (Vitamin C)
aspirin 81 mg tablet,delayed 81 mg PO DAILY Heart 09/12/22
release Disease/Condition
cyanocobalamin (vitamin B-12) 1,000 mcg PO DAILY Supplement 09/12/22
1,000 mcg tablet
hydrochlorothiazide 25 mg tablet 25 mg PO DAILY Fluid 09/12/22
Retention/Swelling
docusate sodium 100 mg capsule 200 mg PO DAILYPRN PRN constipation 11/28/22
(Colace)
psyllium 1 packet PO DAILY Gastrointestinal 11/28/22
Issue
sildenafil 100 mg tablet 100 mg PO DAILYPRN PRN ed 11/28/22
lacosamide 200 mg tablet (Vimpat) 200 mg PO BID 30 days #60 tabs 11/30/22
divalproex 250 mg tablet,extended 250 mg PO BID #60 tabs 01/04/23
release 24 hr (Depakote ER)
divalproex 500 mg tablet,extended 500 mg PO BID #60 tabs 01/04/23
release 24 hr (Depakote ER)
escitalopram oxalate 10 mg tablet 10 mg PO DAILY 04/08/23

Documented by User: Kartik Rosales MD 04/09/23 10:00
Consultation - Neurology 4
-
CONSULTING PHYSICIAN: Kartik Rosales MD
REFERRING PHYSICIAN: Hospitalists/Dr. Nichols
DICTATED BY: KRISS Matthew
DATE/TIME OF REQUEST: 04/09/23
DATE/TIME OF CONSULTATION: 04/09/23
Reason for Consultation: Seizure
History of Present Illness:
This is a 77-year-old male who has presented to the hospital with report of seizure at home. Patient is known to our Neurology service and is followed by Dr. Cheema as an outpatient.
From previous encounter with Dr. Cheema on 11/28/22:
'Patient is a 77-year-old man with a past medical history of significant psychiatric history with alprazolam and bupropion overdose, depression, PTSD, former alcohol abuse, possible seizure presented to hospital with status epilepticus.
Patient's provides history and reports he has not had any recent medication changes or recent illnesses went to bed yesterday feeling fine yesterday has been feeling fine.� Around 5:30 AM this morning patient noted to have convulsive
generalized seizure activity with loss of consciousness and this persisted for around 10 to 15 minutes before EMS arrived and provided 2 mg IM midazolam which stopped the seizure activity.� He had recurrent seizure activity in the ambulance and
received 2 mg IV lorazepam which stopped the seizure activity.� In the ER he underwent CT head scan of the head and was given 1000 mg IV levetiracetam and then 300 mg IV lacosamide.� Patient's somnolent and postictal at this time not able provide
history.
Patient had recent hospitalization after questionable seizure activity on 09/12 there was concern on whether or not this was seizure versus night terror versus stress related event, he ultimately left AMA was not felt he would need to necessarily be
started on chronic antiseizure medications.� Psychiatric consultation felt that patient would not need to necessarily be stopped on bupropion given low-dose at 150 mg and at low-dose generally bupropion not highly contributory to seizure.'
From outpatient e[facility] Telephone encounter:
'Gabino Cheema 02/25/2023 12:06:57 PM > Patient around 3-4 weeks ago started to have walking issues with some mild left leg weakness noted when getting in and out of bed, some speaking not quite normally and confusion, stable since about 3-4 weeks
ago when it seemed to come on fairly suddenly, no headaches, has some mild back pain no urinary incontinence or retention or bowel incontinence, left arm is normal, no facial asymmetry. Will order MRI of the brain and L spine as some concern for a
stroke that could have happened 3-4 weeks ago versus a lumbar radiculopathy. No seizures since January 04 that led to ED visit and is on 750 mg Valproic acid and Lacosamide 200 mg BID.'
Patient completed MRI brain and lumbar testing on 03/26/23 due to new report of LLE weakness, abnormal speech, and confusion. MRI brain was negative for acute infarct/abnormality. MRI lumbar spine demonstrates degenerative disc disease worse at L2-L3
with foraminal stenosis, disc bulge at right L5 nerve root, but the left leg was the involved limb. He was then evaluated in the Neurology office on 03/27/23 and the decision was made to gradually wean him off of lacosamide in the hop of improving
his cognition and tremor. Lacosamide wean plan: 100 mg AM and 200 mg PM for 2 weeks. Then 100 mg BID for 2 weeks. Then 100 mg qhs for 2 weeks, then stop.
Today (04/09/23):
Yesterday evening (04/08/23) following dinner, patient was noted to have sudden onset of diaphoresis followed by bloody vomiting, his eyes rolled backwards, and his arm flailed. His family reports he did not lose consciousness, patient does not
recall this event. There was no tongue biting or urinary/bowel incontinence noted. In the ER, patient's Lacosamide dose was increased back up to 200mg BID and Depakote 750mg daily was continued. Valproic acid level is 91.1. He notably has an DONNY and
IVF were administered. Patient reports that he had a seizure yesterday, but describes going to several fireworks shows that induced the event. He is confused/poor historian and this information has been obtained from medical records. Currently, He
denies any headache, dizziness, vision changes, speech/swallow difficulty, nausea, numbness, chest pain, palpitations, and shortness of breath. He endorses chronic issues with nondescript weakness.
Past Medical History: Cardiac arrest 03/2022 secondary to intentional overdose with benzodiazepines/bupropion, PTSD, depression, anxiety, seizure disorder, former heavy alcohol use, HTN, HLD, PAD, prostate cancer, cognitive impairment, movement
disorder
Surgical History: Prostatectomy, herniorrhaphy
Family History: Mother- stomach cancer
Social History: Former tobacco and alcohol usage. +Medical marijuana.
Allergies: Shellfish, statins, morphine.
Home Medications: See below.
Review of Symptoms:
Patient denies any fever, headache, chest pain, shortness of breath, GI or symptoms.
�Per the HPI.�All systems are reviewed negative except above.
Physical Exam:
The patient is afebrile, abdomen is nondistended, breathing is unlabored, skin is warm and dry, no edema.
Neurologic Examination:
The patient is awake, alert. Not oriented to month, year, or situation. Oriented to place only. He is able to follow one-step commands and answer questions appropriately. Severe difficulty with two-step commands. There is no aphasia. Speech is
hypophonic and tremulous at times when facial tremor is exacerbated. On cranial nerve assessment, pupils are 3 mm bilateral, round and reactive to light and accommodation. Visual arora are full. Extraocular movements are intact. Facial sensations
are intact and bilaterally symmetrical, there is no facial asymmetry. Hearing is intact bilaterally to normal conversation volume. Tongue palate and uvula are midline. Sternocleidomastoid strengths are full bilaterally. Motor strengths are 5/5
bilateral upper and lower extremities on medical research [place] scale. There is no drift. Low amplitude semi rhythmic tremor in distal bilateral upper extremities at rest and with exertion right>left. Low amplitude semi rhythmic tremor also in
face and bilateral feet. Deep tendon reflexes are 2+ bilateral upper and lower extremities and Babinski is absent bilaterally. There was no extinction noted on double simultaneous stimulation. Coordination is intact by finger to nose bilaterally.
Lab Results: See below.
Neuro Imaging:
1. MRI Brain 03/26/23: Limited examination due to patient motion during the exam. Fast scan imaging is performed. Moderate diffuse volume loss. Mild to moderate leukoaraiosis. No acute intracranial process. Mild right mastoiditis.
2. MRI Lumbar Spine 03/26/23: Most significant degenerative disk and joint disease at L2-3, with severe lateral stenosis impinging upon the descending nerve roots bilaterally, with associated moderate central canal stenosis, significant endplate
sclerosis and Modic changes particularly on the left and a shallow central disk herniation. Moderate disk bulge at L4-5 with slight right central prominence impinging upon the descending right L5 nerve root. Incidental note is made of small
lobulated cystic appearing fluid signal intensity structures just anterior to the right lower ribs in the posterior aspect of the peritoneal space, nonspecific finding. Likely represents small ganglion cysts. These measure approximately 1 cm in
greatest dimension. No adjacent edema. No adjacent mass effect.
Differentials for the patient's presentation include:
1. Episode more consistent with vasovagal event in the setting of vomiting, eyes rolling back more consistent with this than seizure
2. Seizure possible given recent reduction in lacosamide dosing, although less likely given diaphoresis, vomiting, and lack of tongue bite/incontinence.
3. DONNY
4. Bloody emesis
Patient has the following risk factors for their symptoms: Recent reduction in lacosamide, vomiting, DONNY, bloody emesis
Recommendations:
-Continue lacosamide 200mg BID and Depakote 750mg daily.
-Check orthostatic vital signs.
-Consider outpatient KATY scan given parkinsonian symptoms.
-Seizure precautions.
-PT/OT/ST evaluations.
-Zyprexa PRN agitation.
-Lorazepam PRN seizure activity.
-Initiate thiamine 100mg PO daily.
-DVT prophylaxis.
Discussed patient care with: Bobby Garcia, the patient
[2023-04-09 10:47] LABS: INR 1.05; PT 13.9 Sec (11.4-14.6)
[2023-04-09] MEDS: VITAMIN B1 100 MG PO (10:55)
[2023-04-09 11:03] LABS: Alcohol None Detected
[2023-04-09 12:11] LABS: Ferritin 84.1 ng/ml (17.9-464.0)
[2023-04-09 12:20] LABS: Ammonia < 9 umol/L (9-30)
[2023-04-09 12:42] LABS: Folate 19.9 ng/ml (2.76-20); Vitamin B12 > 1000 pg/ml (239-931)
--- NOTE | 2023-04-09 13:57 | W.PN.HOSP.TC ---
Today's Communication/Plan
-
abdominal binder
monitor cbc
possible egd tomorrow
Assessment / Plan
Assessment / Plan
General: Other (77y M in no acute distress.)
HEENT: Moist mucous membranes, PERRLA and Other (No tongue lacerations / mucosal lesions.)
Respiratory: Clear; No Wheezes, Rales or Rhonchi
Cardiac: S1/S2 and Regular Rhythm; No Murmur
GI: Soft, Non Tender, Non Distended and Normal Bowel Sounds
Musculoskeletal: No Clubbing, No Cyanosis and No Edema; hand tremors present
Neuro: Awake and Alert; No Oriented
Psych: Not Agitated
A/P:� Patient is a 77y M with PMH significant for PTSD, hypertension and seizure disorder who presents to ED for evaluation of weakness, seizure activity and hematemesis.
Parkinsonism versus orthostatic hypotension versus seizure
� Orthostatics positive
� Abdominal binder given
� Holding on EEG as per neurology
� Continue antiepileptics
� Thiamine
� Vitamin B12
� Provide IV iron if ferritin less than 50
�- Ativan as needed for additional / breakthrough seizures.
�- Neurology evaluation
�-
DONNY
Hypokalemia
Anion Gap Metabolic Acidosis
�- SCr = 2.1 compared to known baseline of 1.1.
� Improving with resuscitation
�- No significant volume losses reported by family (diarrhea, recurrent emesis, etc).
�-monitor and replete electrolytes
�- Continue IVFs with potassium replacement.
�- Hold HCTZ.
�- Follow for improvement in labs / lytes.
�- Bladder scan protocol / straight cath if needed.
Hematemesis
�- N/V of gross blood x 1 episode this evening.
�- IV PPI BID.
�- GI evaluation
�- possible EGD tomorrow
-Monitor Hgb
ADAT
-Will need eventual C-Scope
Benign Hypertension
�- Stable. Hold HCTZ as noted above given DONNY, hypokalemia.
�- Adjust med regimen as needed for BP control.
PTSD
�- Stable.� Continue current Lexapro dosing.
�- Zyprexa as needed for acute agitation during hospital stay.
Movement Disorder
Cognitive Impairment
�- states that symptoms have all been progressive since September / initial seizure diagnosis.
�- She is concerned that his meds may be contributing to his mobility and memory issues.
�- Seems to have Parkinsonian features with stiffness, immobility of inertia, etc.
�- PT / OT evaluations.
�- Neuro eval as noted above.
ASCVD
�- Listed history of PAD, but no noted surgeries, etc.
�- Hold ASA for now given hematemesis.
DVT Prophylaxis:� SCDs
Code Status:� DNR
Anticipated Discharge: 24 - 48 hours
Subjective/Interval History
-
Date of Service: April 09, 2023
No acute events overnight
Objective Data
-
Labs:
Laboratory Results
04/09/23 04/09/23
06:11 10:29
WBC 6.2
Hgb 13.1
Hct 36.2 L
Plt Count 126 L D
PT 13.9
INR 1.05
Sodium 137
Potassium 3.5
Chloride 106
Carbon Dioxide 20 L
BUN 40 H
Creatinine 1.4 H
Glucose 90
Calcium 8.5
Total Bilirubin 0.9
AST 49
ALT 67 H
Alkaline Phosphatase 48
Vital Signs:
Vital Signs
Temp Pulse Resp BP Pulse Ox
100.2 F 80 18 141/64 98
04/09/23 11:00 04/09/23 11:00 04/09/23 11:00 04/09/23 11:00 04/09/23 11:00
Review of Systems
-
History Source: Patient
All other systems: Not reviewed unless documented
Data Reviewed
-
Labs: Labs Reviewed by me
[2023-04-09] MEDS: LR 1000 IV (15:03)
[2023-04-09] MEDS: XANAX 0.5 MG PO ×2 (15:04→21:16)
--- NOTE | 2023-04-09 15:23 | CM ---
Chart reviewed. Spoke with pt and his
Pt confused at times
Lives in apartment with
Increasing needs per
Denies dme - reports daughter is getting a rolling walker
Denies past snf/VN
PT recs - snf vs home health - agreeable to home health- [facility]
PCP - Ramona terrell
Pharm - [facility]
Plan - Anticipate home with home health - [facility]
TT to [facility] liaison
[2023-04-09 16:20] LABS: Amphetamines Negative (Negative); Barbiturates Negative (Negative); Benzodiazepines Positive (Negative); Buprenorphine Negative (Negative); Cocaine Negative (Negative); Marijuana Positive (Negative); Methadone Negative (Negative); Methamphetamines Negative (Negative); Opiates Negative (Negative); Phencyclidine Negative (Negative); Tricyclic Antidepressants Negative (Negative)
[2023-04-09 18:30] LABS: Fentanyl, Urine Negative (Negative)
[2023-04-10 03:01] VITALS: BP 129/64
[2023-04-10 05:42] LABS: Hematocrit 35.6 % (39.0-52.0); Hemoglobin 12.7 g/dL (13.0-18.0); Mean Corp Hgb Conc. 35.7 g/dL (33.0-37.0); Mean Corpuscular Hgb 34.6 pg (27.0-31.0); Mean Platelet Volume 11.7 fL (7.4-10.4); Platelet Count 106 10^3/uL (130-400); Red Blood Cell Count 3.67 10^6/uL (4.70-6.10); Red Cell Dist. Width 14.2 % (11.5-14.5); White Blood Cell Count 5.2 10^3/uL (4.8-10.8)
[2023-04-10 06:00] VITALS: BMI 24.7
[2023-04-10 06:10] LABS: ALT (SGPT) 58 U/L (0-50); AST (SGOT) 47 U/L (17-59); Albumin 2.9 g/dl (3.5-5.0); Alkaline Phosphatase 40 U/L (38-126); Blood Urea Nitrogen 27 mg/dl (9-20); Calcium 8.7 mg/dl (8.4-10.2); Carbon Dioxide 28 mmol/L (22-30); Chloride 105 mmol/L (98-107); Estimated Creatinine Clearance 53 ml/min; Glucose 80 mg/dl (70-99); Potassium 3.8 mmol/L (3.5-5.1); Sodium 137 mmol/L (135-145); Total Bilirubin 0.9 mg/dl (0.2-1.3); Total Protein 5.2 g/dl (6.3-8.2); eGFR > 60.00
[2023-04-10 08:10] VITALS: BP 133/69
[2023-04-10] MEDS: PROTONIX IV 40 MG IV (08:52)
[2023-04-10] MEDS: XANAX 0.5 MG PO (08:52)
[2023-04-10] MEDS: LEXAPRO 10 MG PO (08:52)
[2023-04-10] MEDS: NSS (PRESERVATIVE FREE) 10 ML IV (08:52)
[2023-04-10] MEDS: VIMPAT 200 MG PO (08:52)
[2023-04-10] MEDS: DEPAKOTE ER (24 HR RELEASE) 750 MG PO (08:52)
[2023-04-10] MEDS: VITAMIN B-12 1000 MCG PO (08:53)
[2023-04-10] MEDS: VITAMIN B1 100 MG PO (08:53)
--- NOTE | 2023-04-10 11:24 | W.PN.HOSP.TC ---
Addendum entered and electronically signed by Devyn Keenan MD 04/10/23 17:37:
Attempted to call spouse multiple times to inform that pantoprazole sent for twice daily rather than once a day. Will continue to call. Had left voicemail as well.
Addendum entered and electronically signed by Devyn Keenan MD 04/10/23 17:34:
[id number]
Original Note:
Today's Communication/Plan
-
bmp in 3-5 days with pcp, then can restart hydrochlorothiazide at that point if desired;
restart amlodipine once cleared by pcp - normotensive here and was orthostatic
CBC in 3-5 days with pcp
Use abdominal binder
vit b12, thiamine
Assessment / Plan
Assessment / Plan
General: Other (77y M in no acute distress.)
HEENT: Moist mucous membranes, PERRLA and Other (No tongue lacerations / mucosal lesions.)
Respiratory: Clear; No Wheezes, Rales or Rhonchi
Cardiac: S1/S2 and Regular Rhythm; No Murmur
GI: Soft, Non Tender, Non Distended and Normal Bowel Sounds
Musculoskeletal: No Clubbing, No Cyanosis and No Edema; hand tremors present
Neuro: Awake and Alert; No Oriented
Psych: Not Agitated
A/P:� Patient is a 77y M with PMH significant for PTSD, hypertension and seizure disorder who presents to ED for evaluation of weakness, seizure activity and hematemesis.
Parkinsonism versus orthostatic hypotension versus seizure
� Orthostatics positive
� Abdominal binder given
� Holding on EEG as per neurology
� Continue antiepileptics
� Thiamine
� Vitamin B12
�- Ativan as needed for additional / breakthrough seizures.
�- Neurology evaluation appreciated, follow-up neurology outpatient
�-
DONNY
Hypokalemia
Anion Gap Metabolic Acidosis
� Resolved
�- SCr = 2.1 compared to known baseline of 1.1.
� Possibly secondary to hydrochlorothiazide use
� Improving with resuscitation
�- No significant volume losses reported by family (diarrhea, recurrent emesis, etc).
�-monitor and replete electrolytes
�- Continue IVFs with potassium replacement.
�-Continue holding hydrochlorothiazide until seen outpatient
Hematemesis
�- N/V of gross blood x 1 episode this evening.
�- IV PPI BID.�Switch to PPI daily, no further events inpatient
�- GI evaluation appreciated
� After speaking to patient, patient does not desire any endoscopy or colonoscopy regardless if offered; patient has no interest in any aggressive measures or interventions
-Monitor Hgb
ADAT
Benign Hypertension
�- Stable. Hold HCTZ as noted above given DONNY, hypokalemia.
�- Adjust med regimen as needed for BP control.
Hold amlodipine for now as normotensive and orthostatic, follow-up patient
PTSD
�- Stable.� Continue current Lexapro dosing.
�- Zyprexa as needed for acute agitation during hospital stay.
Movement Disorder
Cognitive Impairment
�- states that symptoms have all been progressive since September / initial seizure diagnosis.
�- She is concerned that his meds may be contributing to his mobility and memory issues.
�- Seems to have Parkinsonian features with stiffness, immobility of inertia, etc.
�- PT / OT evaluations.
�- Neuro eval as noted above.
ASCVD
�- Listed history of PAD, but no noted surgeries, etc.
�- Hold ASA for now given hematemesis.
DVT Prophylaxis:� SCDs
Code Status:� DNR
More than 30 minutes spent in discharge including
Final examination of the patient
Summarizing hospital stay
Instructions for continuing care to all relevant caregivers
Preparation of discharge records, prescriptions, and referral forms
Total time spent (35 in minutes):
Anticipated Discharge: Today
Subjective/Interval History
-
Date of Service: April 10, 2023
No acute events, patient admits he does not want endoscopy even if offered.
Objective Data
-
Labs:
Laboratory Results
04/10/23
05:18
WBC 5.2
Hgb 12.7 L
Hct 35.6 L
Plt Count 106 L
Sodium 137
Potassium 3.8
Chloride 105
Carbon Dioxide 28
BUN 27 H
Creatinine 1.1
Glucose 80
Calcium 8.7
Total Bilirubin 0.9
AST 47
ALT 58 H
Alkaline Phosphatase 40
Vital Signs:
Vital Signs
Temp Pulse Resp BP Pulse Ox
98 F 58 17 133/69 96
04/10/23 08:10 04/10/23 08:10 04/10/23 08:10 04/10/23 08:10 04/10/23 08:10
I&O
04/09/23 04/10/23 04/11/23
06:59 06:59 06:59
Intake Total 900 / 900
Balance 900 / 900
Review of Systems
-
History Source: Patient
All other systems: Not reviewed unless documented
Data Reviewed
-
Diagnostic Radiology: Image personally visualized and interpreted and Report Reviewed by me
Labs: Labs Reviewed by me
--- NOTE | 2023-04-10 11:31 | W.DS.TRANS ---
DC Summary - Metrology Specialist
-
Discharge Instructions:
Discharge Diagnosis/Procedures dementia with parkinsonism, orthostatic
hypotension, less likely seizure; hematemesis
Diet Low Fat,Low Cholesterol
Activity As tolerated
Blood Work bmp in 3-5 days with pcp, then can restart
hydrochlorothiazide at that point if desired;
restart amlodipine once cleared by pcp -
normotensive here
CBC in 3-5 days with pcp
Use abdominal binder
Instructions:
Stand-Alone Forms:
Changes to Home Medications: Yes
Discharge Medications:
DC Medications w/original date entered in [facility]
Medical Marijuana 1 puff inhalation DAILYPRN PRN anixety/stess 09/12/22
alprazolam 0.5 mg tablet (Xanax) 0.5 mg PO TIDPRN PRN anxiety 09/12/22
amlodipine 10 mg tablet 10 mg PO DAILY Blood Pressure 09/12/22
ascorbic acid (vitamin C) 500 mg tablet (Vitamin C) 500 mg PO DAILY Supplement 09/12/22
aspirin 81 mg tablet,delayed release 81 mg PO DAILY Heart Disease/Condition 09/12/22
cyanocobalamin (vitamin B-12) 1,000 mcg tablet 1,000 mcg PO DAILY Supplement 09/12/22
hydrochlorothiazide 25 mg tablet 25 mg PO DAILY Fluid Retention/Swelling 09/12/22
docusate sodium 100 mg capsule (Colace) 200 mg PO DAILYPRN PRN constipation 11/28/22
psyllium 1 packet PO DAILY Gastrointestinal Issue 11/28/22
sildenafil 100 mg tablet 100 mg PO DAILYPRN PRN ed 11/28/22
lacosamide 200 mg tablet (Vimpat) 200 mg PO BID 30 days #60 tabs 11/30/22
divalproex 250 mg tablet,extended release 24 hr (Depakote ER) 250 mg PO BID #60 tabs 01/04/23
divalproex 500 mg tablet,extended release 24 hr (Depakote ER) 500 mg PO BID #60 tabs 01/04/23
escitalopram oxalate 10 mg tablet 10 mg PO DAILY Depression 04/08/23
pantoprazole 40 mg tablet,delayed release 40 mg PO DAILY #30 tabs 04/10/23
thiamine HCl (vitamin B1) 100 mg tablet 100 mg PO DAILY 30 days #30 tabs 04/10/23
Home Medication Changes
pantoprazole 40 mg tablet,delayed release 40 mg PO DAILY #30 tabs 04/10/23
thiamine HCl (vitamin B1) 100 mg tablet 100 mg PO DAILY 30 days #30 tabs 04/10/23
Pending Results: No
[2023-04-10 11:44] VITALS: BP 130/67
--- NOTE | 2023-04-10 11:56 | W.PN.GI.CBS2 ---
Today's Communication / Plan
-
Etiology of hematemesis unclear -- PUD, ectasia, mass, esophagitis vs other
no know hx liver disease in past but prior ETOH use. Platelets mildly low, albumin 3.1, ALT minimal elevation will add INR
pt has now declined EGD/ colon -- I reviewed again with present-- again still declines and aware of missing PUD, ectasia, mass vs other
hbg 12.7 stable today
less tremors feeling better
I left contact information on chart if wishes to set up outpatient testing
obstruction series neg
+ stool 04/09 tox screen + benzo and Marijuana neg ETOH
diet as tolerated
cont PPI BID
NSAID and ETOH avoidance
for discharge today
Assessment / Plan
-
Pt is a 77yo with hx PTSD, seizure disorder, gait dysfunction with increased weakness with onset of seizure with nausea and vomiting and noted hematemesis. In reviewing with patient noted with vomiting about 1/2 dark brown material. He denies
constipation but later review with hospitalist no stools for 5 days. States prior ETOH and tobacco use 12 years ago. He denies hx dysphagia, GERD, abdominal pain, constipation blood or black in stools. Pt did not recall prior EGD or colonoscopy
in past. Pt with prior evaluation last year for hbg 3.4 noted and declined GI work up. Denies NSAID use. No hx liver issues in past.
04/09/23 Obstruct Series W/pa Chest
No active cardiopulmonary disease.
No evidence of acute abdominal pathology.
-hematemesis
-seizure disorder with seizure possible prior to admission
-mild confusion on exam
-DONNY on admission
-constipation
-prior anemia with decline of GI work up in 2012
-tremors
-mild thrombocytopenia
-hypokalemia - improved
other medical problems:
-PTSD
-gait dysfunction
-ASCVD/PAD
-hx cardiac arrest secondary to benzo/bupropion overdose
-ETOH abuse
-movement disorder
-DDD
PLAN:
Etiology of hematemesis unclear -- PUD, ectasia, mass, esophagitis vs other
no know hx liver disease in past but prior ETOH use. Platelets mildly low, albumin 3.1, ALT minimal elevation will add INR
pt has now declined EGD/ colon -- I reviewed again with present-- again still declines and aware of missing PUD, ectasia, mass vs other
hbg 12.7 stable today
less tremors feeling better
I left contact information on chart if wishes to set up outpatient testing
obstruction series neg
+ stool 04/09 tox screen + benzo and Marijuana neg ETOH
diet as tolerated
cont PPI BID
NSAID and ETOH avoidance
for discharge today
Subjective
Subjective
Date of Service: April 10, 2023
cholesterol lower diet, brown stool 04/09 feeling well for discharge today
Objective
Data Reviewed
Laboratory Data:
Laboratory Results
04/10/23 05:18
04/10/23 05:18
Laboratory Results
PT 13.9 Sec (11.4-14.6) 04/09/23 10:29
INR 1.05 04/09/23 10:29
Magnesium 1.9 mg/dl (1.6-2.3) 04/09/23 06:11
Total Bilirubin 0.9 mg/dl (0.2-1.3) 04/10/23 05:18
AST 47 U/L (17-59) 04/10/23 05:18
ALT 58 U/L (0-50) H 04/10/23 05:18
Alkaline Phosphatase 40 U/L (38-126) 04/10/23 05:18
Vital Signs and I&O:
Vital Signs
Temp Pulse Resp BP Pulse Ox
98 F 64 17 130/67 96
04/10/23 11:44 04/10/23 11:44 04/10/23 11:44 04/10/23 11:44 04/10/23 11:44
I&O
04/09/23 04/10/23 04/11/23
06:59 06:59 06:59
Intake Total 900 / 900
Balance 900 / 900
Physical Exam
Physical Exam
HEENT: Anicteric and Moist mucous membranes
Cardiology: Normal Sinus Rhythm
Pulmonary: Clear
GI: Soft, Non Distended and Non Tender
Extremities: No Edema
Neuro: Non Focal
--- NOTE | 2023-04-10 12:56 | CM ---
entered order for discharge.
Spoke with Jessica [phone].
She said she will drive him home.
[facility] has accepted him. in agreement.
carding utility tender list given and explained [facility] could assess and provide waiver care center manager if he qualifies.
Received call from Adriel MURILLO at [facility] [phone] ext [phone].He said he would contact with care center manager info and all [facility] recourses.
PLAN Home with [facility]
--- NOTE | 2023-04-10 15:21 | VNURNOTE ---
Home Health Liaison spoke with patient's Jessica by phone at 1030 to discuss [facility] nurse/therapy, visits, schedule and homebound status. Jessica is agreeable and understands that visits at home will be 2-3 x per week to assess and teach medical
management. Private caregiver discussed as patient is requiring assistance and is unsure she can manage. Private caregiver list left at patient bedside.
[facility] brochure provided with contact information. Jessica is aware that [facility] will contact them for start of care in 1-2 days after discharge from .
[facility] referral completed in [facility].
== END 2023-04-10 13:37 | disposition home or self-care (01) | DRG 57 ==
LOC: 3 WEST ACU 23:10
PROVIDERS: Nurse Practitioner Adult Health; ADMITTING PHYSICIAN Hospitalist; ATTENDING PHYSICIAN Internal Medicine; CONSULT PHYSICIAN Internal Medicine Gastroenterology; EMERGENCY PHYSICIAN Emergency Medicine; FAMILY PHYSICIAN Family Medicine; OTHER PHYSICIAN Psychiatry & Neurology Neurology
DX: G20.C Parkinsonism, unspecified (principal); N17.9 Acute kidney failure, unspecified; K92.0 Hematemesis; E87.20 Acidosis, unspecified; F02.80 Dementia in other diseases classified elsewhere, unspecified severity, without behavioral disturbance, psychotic disturbance, mood disturbance, and anxiety; Z87.891 Personal history of nicotine dependence; G40.909 Epilepsy, unspecified, not intractable, without status epilepticus; E87.6 Hypokalemia; Z66 Do not resuscitate; I10 Essential (primary) hypertension; I25.10 Atherosclerotic heart disease of native coronary artery without angina pectoris; F43.10 Post-traumatic stress disorder, unspecified; I95.1 Orthostatic hypotension; F32.A Depression, unspecified; D69.6 Thrombocytopenia, unspecified; E87.5 Hyperkalemia; K59.00 Constipation, unspecified; Z79.82 Long term (current) use of aspirin
CPT/HCPCS: 74022; 80053; 80164; 80306; 80307; 81003; 82077; 82140; 82248; 82550; 82607; 82728; 82746; 83605; 83735; 84443; 85025; 85027; 85610; 85652; 93005; 96360; 97163; 97167; 99285

== ENCOUNTER 2023-06-26 08:27 | Inpatient (IN) | payer OTHER, SELFPAY ==
[2023-06-24 17:11] VITALS: BP 131/62
[2023-06-24 17:14] VITALS: BP 131/62
[2023-06-24 17:30] VITALS: BMI 25.2
[2023-06-24 17:50] LABS: % Eosinophils 2.7 % (0-6); % Immature Granulocytes 0.2 % (0-0.5); % Lymphocytes 20.9 % (20.5-51.1); % Monocytes 8.2 % (1.7-9.3); Absolute Basophils 0.1 10^3/uL (0-0.2); Absolute Eosinophils 0.1 10^3/uL (0-0.7); Absolute Monocytes 0.4 10^3/uL (0.1-0.6); Absolute Neutrophils 3.2 10^3/uL (1.4-6.5); Hematocrit 40.3 % (39.0-52.0); Hemoglobin 14.1 g/dL (13.0-18.0); Mean Corpuscular Hgb 35.3 pg (27.0-31.0); Mean Corpuscular Volume 100.8 fL (80.0-94.0); Mean Platelet Volume 9.5 fL (7.4-10.4); Nucleated Red Blood Cells % 0 % (-); Platelet Count 196 10^3/uL (130-400); Red Cell Dist. Width 13.3 % (11.5-14.5); White Blood Cell Count 4.8 10^3/uL (4.8-10.8)
[2023-06-24 18:00] VITALS: BP 114/66
[2023-06-24 18:07] LABS: ALT (SGPT) 24 U/L (0-50); AST (SGOT) 28 U/L (17-59); Albumin 3.8 g/dl (3.5-5.0); Alkaline Phosphatase 76 U/L (38-126); Blood Urea Nitrogen 16 mg/dl (9-20); Calcium 9.4 mg/dl (8.4-10.2); Carbon Dioxide 27 mmol/L (22-30); Chloride 106 mmol/L (98-107); Estimated Creatinine Clearance 50 ml/min; Glucose 126 mg/dl (70-99); Potassium 4.6 mmol/L (3.5-5.1); Sodium 139 mmol/L (135-145); Total Bilirubin 0.6 mg/dl (0.2-1.3); Total Protein 6.3 g/dl (6.3-8.2); eGFR > 60.00
[2023-06-24 19:00] VITALS: BP 132/78
--- NOTE | 2023-06-24 19:16 | ED.GENMED ---
History of Present Illness
General
Chief Complaint: Fall
Source: patient, records and spouse
Exam Limitations: none
Time Seen by Provider: 06/24/23 18:12
Nursing documentation reviewed up to this point in time: agreed with
Travel History
Have you had any contact with someone who has COVID-19?: No
Do you have any symptoms of coronavirus? Fever > 100 degrees, chills, cough, shortness of breath, sore throat, loss of taste or smell, muscle aches, or headache?: No
History of Present Illness
History of Present Illness:
Patient is a 78-year-old male who presents to the emergency department with increasing weakness over the past few days to the point where he is unable to stand on his own and fell to the floor 4-5 times today. Patient and his deny any injury.
Patient denies any fever or chills. Patient denies syncope. Patient denies chest pain, shortness of breath or palpitations. Patient denies any GI symptoms. Patient denies any dysuria or hematuria but has had increasing urinary incontinence.
Patient was taken off his Depakote approximately a week ago after being weaned down for 5 weeks. Patient initially seemed to do better but this is gotten worse since that time. Patient was diagnosed with seizures in the past and went up on his
primidone but did not tolerate it very well so it was reduced back to 100 mg a day. Patient has had increasing tremors. Patient was seen by neurologist at another institution and there was concern for Parkinson like symptoms and process. Patient
was in rehab until a month ago and came on and seem to do well initially but has dramatically declined over the past 4 to 5 days.
Past History
Past History
ED Past Medical History: Cancer (Prostate), HTN, Seizures, Psychiatric (PTSD, anxiety, intentional overdose March 2022) and Other (Pulseless electrical activity March 2022)
ED Past Surgical History: Urological (Prostatectomy) and Other (Hernia repair)
Social History
Tobacco: Former smoker
Alcohol: Former
Drug: None
Personal:
Living: with family
Employment: Retired
Family History
Family History: Other (Reviewed and noncontributory)
Review of Systems
Review of Systems
All Other Systems: ROS reviewed and negative except as documented in HPI and ROS
Constitutional: Reports fatigue; Denies fever or chills
EENT: Reports no symptoms
Respiratory: Reports no symptoms
Cardiac: Reports no symptoms
ABD/GI: Reports no symptoms
: Reports incontinence; Denies dysuria or bleeding
Musculoskeletal: Reports no symptoms
Skin: Reports no symptoms
Neurological: Reports weakness (Generalized) and other (Increased tremors of his upper extremities as well as his face); Denies dizzy, headache or numbness
Hematologic/Lymphatic: Reports no symptoms
Phy Exam
Physical Exam
Physical Exam:
Physical Exam
General: No apparent distress, alert and appropriate but with constant tremor of the face especially his lower jaw, well nourished, well hydrated, patient does appear debilitated
HENT: Normocephalic, supple with no lymphadenopathy, no thyromegaly
Eyes: Clear sclera, conjuctiva without injection
Heart: Regular rhythm and rate. No S3, S4. No murmur.
Lungs: No respiratory distress, no stridor, lung sounds clear and equal bilaterally
Abdomen: Soft, nontender, no organomegaly, no CVA tenderness, BS good
Neuro: Alert and usual mental status, CN II - XII intact, no motor focality, with intention tremor and very mild cogwheeling. Frontal release signs are present
Skin: no rash
Psychiatric: well kept. interactive and cooperative
Extremities: No edema, cyanosis, tenderness, Good and equal peripheral pulses.
Course
Orders/Labs/Results
Orders:
Orders
06/24/23 17:36
Electrocardiogram (*1) Urgent
Reason for Study: Vertigo / Dizzy
EKG- Treatment ONCE
06/24/23 17:37
Complete Blood Count/With Diff Urgent
Comprehensive Metabolic Panel Urgent
06/24/23 19:15
CT Head W/o Iv Contrast Urgent
Comment:
Reason For Exam: change in mental sttus
Abnormal Lab Results
06/24/23
17:37
RBC 4.00 L 10^6/uL
(4.70-6.10)
MCV 100.8 H fL
(80.0-94.0)
MCH 35.3 H pg
(27.0-31.0)
Absolute Lymphs (auto) 1.0 L 10^3/uL
(1.2-3.4)
Glucose 126 H mg/dl
(70-99)
06/24/23 17:37
06/24/23 17:37
Vital Signs
Initial and Last Documented VS:
Initial Vital Signs
BP
131/62
06/24/23 17:11
Last Documented Vital Signs
Temp Pulse Resp BP Pulse Ox
98 F 65 25 132/78 98
06/24/23 17:14 06/24/23 19:00 06/24/23 19:00 06/24/23 19:00 06/24/23 19:00
*Pulse Oximetry
Patient hypoxic: no
*EKG
Interpreted by ED Provider?: Yes
EKG Intrepretation Date: 06/24/23
EKG Intrepretation Time: 19:22
Interpretation: abnormal
Comparison EKG: no changes
Heart Rate: 64
Rate: normal
Rhythm: sinus
[place]: normal axis
Interval: normal interval
QRS Pattern: normal QRS
Ischemia: no ischemia
*Auto Air Conditioning Installer Interpretation
Rate: normal
Interpretation: normal
Heart Rate: 63
Rhythm: sinus
*Critical Care Note
Total Time (30-74mins, 75-104mins- exclusive of procedures): Not Applicable
Update Note
Update Note:
Patient appears to have Parkinson's and seems to have progressed rapidly over the last week or so. However patient will need further testing and treatment. Given that the patient was at home and his is unable to get him off the floor and he
is unable to stand the patient will be admitted for further evaluation and possible rehab
ED Attending Note
-
Portions of this chart may have been created with voice recognition software.� Occasional wrong word or��sound alike� substitutions may have occurred due to the inherent limitations of voice recognition software.
Discharge Plan
Departure
Patient Disposition: Admit
Date of Disposition: 06/24/23
Time of Disposition: 19:24
Admit to: Med/Surg
Admit to doctor: Hospitalist
Presentation/result/management discussed w/ accepting MD/DO: Hospitalist
Patient with high blood pressure during this ER visit?: No
Condition: Fair
Covid-19: Not Applicable
Discharge Problem:
Weakness, Parkinsonian features, Ambulatory dysfunction
Prescriptions:
No Action
hydrochlorothiazide 25 mg Tablet
25 mg PO DAILY
Hold Instructions: Resume on 04/24/23. until cleared by pcp after BMP taken and Scr WNL
cyanocobalamin (vitamin B-12) 1,000 mcg Tablet
1,000 mcg PO DAILY
aspirin 81 mg Tablet,Delayed Release (Dr/Ec)
81 mg PO DAILY
alprazolam [Xanax] 0.5 mg Tablet
0.5 mg PO TIDPRN PRN (Reason: anxiety)
Patient Comments:
04/08/2023: last filled 03/01/23, 90 tabs for 30 days
ascorbic acid (vitamin C) [Vitamin C] 500 mg Tablet
500 mg PO DAILY
Medical Marijuana
1 puff inhalation DAILYPRN PRN (Reason: anixety/stess)
amlodipine 10 mg tablet
10 mg PO DAILY
Hold Instructions: Resume on 05/01/23. until cleared by pcp
psyllium Packet
1 packet PO DAILY
sildenafil 100 mg Tablet
100 mg PO DAILYPRN PRN (Reason: ed)
docusate sodium [Colace] 100 mg Capsule
200 mg PO DAILYPRN PRN (Reason: constipation)
lacosamide [Vimpat] 200 mg tablet
200 mg PO BID 30 Days Qty: 60 0RF
Patient Comments:
04/08/2023: last filled 04/03/23, 60 tabs for 30 days
divalproex [Depakote ER] 500 mg tablet extended release 24 hr
500 mg PO BID Qty: 60 0RF
Rx Instructions:
taken w/ 250mg = 750mg
divalproex [Depakote ER] 250 mg tablet extended release 24 hr
250 mg PO BID Qty: 60 0RF
Rx Instructions:
taken w/ 500mg = 750mg
escitalopram oxalate 10 mg tablet
10 mg PO DAILY
thiamine HCl (vitamin B1) 100 mg Tablet
100 mg PO DAILY 30 Days Qty: 30 0RF
pantoprazole 40 mg tablet,delayed release (DR/EC)
40 mg PO BID 30 Days Qty: 60 0RF
Interventions
Interventions:
*Risk Screen - Suicide Last Done: 06/24/23 17:14
*General Assessment Last Done: 06/24/23 17:14
*Neglect/Abuse Screening Last Done: 06/24/23 17:14
*ED COVID-19 Vaccine History Last Done: 06/24/23 17:30
ED-Musculoskeletal Assessment Last Done: 06/24/23 17:32
ED- Neurological Assessment Last Done: 06/24/23 17:30
ED-Skin Assessment Last Done: 06/24/23 17:32
Discharge Date and Time
Print Language: PRYDEINIG
--- NOTE | 2023-06-24 19:51 | EDRN ---
Report received, introduced myself to patient, they are asking for water, also patient attempted to stand to urinate and was unable, reported feeling pressure, patient was bladder scanned with results of 332, Dr. Andrews informed, states for
now hold off on straight cathing and that patient can have water, updated patient and his and provided drinks as requested.
--- NOTE | 2023-06-24 20:22 | HPS.HSE ---
Family Physician
-
Family Physician: Ramona Mckenzie
Chief Complaint
-
weakness
History of Present Illness
78-year-old male past medical history of CAD, PAD, prostate cancer status post prostatectomy, orthostatic hypotension, parkinsonism, dementia, hypertension, seizures, anxiety, PTSD, presenting with weakness over the past few days to the point of
being unable to stand on his own and 4-5 falls today. As per spouse she has been more confused over the past few days with worsening tremor. Patient did have urinary incontinence today. He denies any burning with urination. He denies any
dizziness or low blood pressure associated with the falls.
Patient has been having progressive cognitive decline and weakness over the past several months which was thought to be secondary to parkinsonism. He saw his neurologist at [facility] last week who recommended weaning off of Depakote.
Patient was weaned off of Depakote over the past 5 weeks, off of it completely a week ago.. Patient initially seemed to be doing better after weaning off of Depakote. A week ago primidone was increased to 250 mg but patient did not tolerate this
so was decreased back to 100.
Patient and deny any injury. Patient denies any fevers or chills. Patient denies any passing out. Patient denies chest pain or shortness of breath or palpitations. Patient denies nausea vomiting or diarrhea.
Medical History
Past Medical History
Past Medical History: Reports Other (CAD, PAD, prostate cancer status post prostatectomy, orthostatic hypotension, parkinsonism, dementia, hypertension, seizures, anxiety, PTSD)
Past Surgical History: Reports Other (Urological (Prostatectomy) and Other (Hernia repair))
Social History
Tobacco: Former Smoker
Alcohol: Former
Drug: None
Family History
Family History: Not pertinent
Allergies / Home Medications
Allergies reflects when Allergies were last updated in [facility].
Home Medications with original date entered in [facility]
Allergy/Medication List:
Allergies
Allergy/AdvReac Type Severity Reaction Status Date / Time
morphine Allergy Itching Verified 06/24/23 17:13
shellfish derived Allergy Tongue Verified 06/24/23 17:13
Swelling
Psypbio-WNA-CrF Reductase Allergy Swelling Verified 06/24/23 17:13
Inhibitor
[Riztvmc-Ycj-Uit Reductase
Inhibitor]
Home Medications
alprazolam 0.5 mg tablet (Xanax) 0.5 mg PO TIDPRN PRN anxiety 09/12/22
amlodipine 10 mg tablet 5 mg PO DAILY Blood Pressure 09/12/22
ascorbic acid (vitamin C) 500 mg tablet (Vitamin C) 500 mg PO DAILY Supplement 09/12/22
aspirin 81 mg tablet,delayed release 81 mg PO DAILY Heart Disease/Condition 09/12/22
cyanocobalamin (vitamin B-12) 1,000 mcg tablet 1,000 mcg PO DAILY Supplement 09/12/22
docusate sodium 100 mg capsule (Colace) 200 mg PO DAILYPRN PRN constipation 11/28/22
psyllium 1 packet PO DAILY PRN Gastrointestinal Issue 11/28/22
lacosamide 200 mg tablet (Vimpat) 200 mg PO BID 30 days #60 tabs 11/30/22
escitalopram oxalate 10 mg tablet 10 mg PO DAILY Depression 04/08/23
thiamine HCl (vitamin B1) 100 mg tablet 100 mg PO DAILY 30 days #30 tabs 04/10/23
primidone 50 mg tablet 100 mg PO HS 06/24/23
trazodone 50 mg tablet 25 mg PO HS PRN sleep 06/24/23
Review of Systems
-
History Source: Patient
A 12 point ROS was completed and negative except as noted: Yes
Constitutional: Reports No Symptoms
EENT: Reports No Symptoms
Respiratory: Reports No Symptoms
Cardiac: Reports No Symptoms
Abdomen/GI: Reports No Symptoms
: Reports No Symptoms
Musculoskeletal: Reports No Symptoms
Skin: Reports No Symptoms
Neurological: Reports No Symptoms
Endocrine: Reports No Symptoms
Hematologic/Lymphatic: Reports No Symptoms
Psych: Reports No Symptoms
Physical Exam
Vital Signs
Vital Signs
Temp Pulse Resp BP Pulse Ox
98 F 65 25 132/78 98
06/24/23 17:14 06/24/23 19:00 06/24/23 19:00 06/24/23 19:00 06/24/23 19:00
Physical Exam
General: Well Developed, Well Nourished and No Apparent Distress
HEENT: NormoCephalic, Moist mucous membranes and Atraumatic
Respiratory: Clear
Cardiac: S1/S2 and Regular Rhythm; No Murmur or Rub
GI: Soft, Non Tender, Non Distended and Normal Bowel Sounds; No Organomegaly
Rectal: Deferred by Provider
Musculoskeletal: No Clubbing, No Cyanosis and No Edema
Skin: No Rash
Neuro: Nonfocal/grossly intact
Laboratory Results
-
06/24/23 17:37
06/24/23 17:37
Laboratory Results
Total Bilirubin 0.6 mg/dl (0.2-1.3) 06/24/23 17:37
AST 28 U/L (17-59) 06/24/23 17:37
ALT 24 U/L (0-50) 06/24/23 17:37
Alkaline Phosphatase 76 U/L (38-126) 06/24/23 17:37
Data Reviewed
-
Lab Data: Labs Reviewed by me
Old Records: Reviewed
Impression/Plan
-
IMPRESSION:
PLAN:
# Progressive weakness, falls, urinary incontinence concerning for UTI on likely progressive underlying parkinsonism
-CT head pending
-Check urinalysis
-Bladder scan in ER apparently showed urinary retention, bladder scan protocol and Reid catheter as needed
-PT/OT
-Check orthostatic vitals
-Consider neurology if no urine infection discovered
# Urinary incontinence
-Possibly secondary to UTI versus urinary retention from Parkinson's
-Check UA, bladder scan protocol
Cognitive impairment likely due to underlying Parkinson's
-Cogwheeling, intention tremor on examination suggesting underlying Parkinson's
Seizure history
-Depakote weaned off
-Continue lacosamide
-Continue primidone
Coronary artery disease/PAD
-Continue aspirin
Prostate cancer status post prostatectomy
History of orthostatic hypotension
History of essential hypertension
Anxiety/PTSD
-Continue as needed Xanax, Lexapro
-Continue trazodone
DNR/DNI
DVT prophylaxis�heparin
Regular diet
--- NOTE | 2023-06-24 21:00 | EDRN ---
Patient attempted to stand to urinate again and was unable to go, will cath patient to empty bladder
[2023-06-24 21:48] LABS: Urine Albumin Negative (Neg - Trace); Urine Bilirubin Negative (Negative); Urine Character Clear (Clear); Urine Color Yellow; Urine Glucose Negative (Negative); Urine Ketone Negative (Negative); Urine Leukocyte Negative (Negative); Urine Nitrite Negative (Negative); Urine Occult Blood Negative (Negative); Urine Urobilinogen Negative (Neg - 1+)
[2023-06-24 22:00] VITALS: BP 153/80; BP 155/80; PULSE 69; PULSE 70; BMI 24.3
[2023-06-24] MEDS: MYSOLINE 100 MG PO (22:35)
[2023-06-24] MEDS: XANAX 0.5 MG PO (22:39)
--- NOTE | 2023-06-24 23:07 | PTCARENOTE ---
Pt forgetful. Bed alarm not working. Bed alarm and bed alarm box replaced, still not alarming. Maintenance, biomed, and Lisseth Blakely informed about broken bed alarms. Maintenance and biomed unable to fix them so med sitter placed in room for
safety. Call urrutia within reach, plan of care ongoing.
[2023-06-24 23:15] VITALS: BP 155/68
[2023-06-25 05:45] LABS: % Basophils 1.3 % (0-2); % Eosinophils 4.2 % (0-6); % Immature Granulocytes 0.2 % (0-0.5); % Monocytes 6.7 % (1.7-9.3); % Neutrophils 52.6 % (42.2-75.2); Absolute Basophils 0.1 10^3/uL (0-0.2); Absolute Eosinophils 0.2 10^3/uL (0-0.7); Absolute Lymphocytes 1.8 10^3/uL (1.2-3.4); Absolute Monocytes 0.4 10^3/uL (0.1-0.6); Absolute Neutrophils 2.8 10^3/uL (1.4-6.5); Hemoglobin 13.2 g/dL (13.0-18.0); Mean Corp Hgb Conc. 33.8 g/dL (33.0-37.0); Mean Corpuscular Hgb 34.6 pg (27.0-31.0); Mean Corpuscular Volume 102.4 fL (80.0-94.0); Mean Platelet Volume 9.6 fL (7.4-10.4); Nucleated Red Blood Cells % 0 % (-); Platelet Count 170 10^3/uL (130-400); Red Blood Cell Count 3.81 10^6/uL (4.70-6.10); Red Cell Dist. Width 13.1 % (11.5-14.5); White Blood Cell Count 5.3 10^3/uL (4.8-10.8)
[2023-06-25 06:15] LABS: ALT (SGPT) 24 U/L (0-50); AST (SGOT) 32 U/L (17-59); Albumin 3.4 g/dl (3.5-5.0); Alkaline Phosphatase 72 U/L (38-126); Blood Urea Nitrogen 16 mg/dl (9-20); Calcium 9.1 mg/dl (8.4-10.2); Carbon Dioxide 23 mmol/L (22-30); Chloride 110 mmol/L (98-107); Estimated Creatinine Clearance 55 ml/min; Glucose 83 mg/dl (70-99); Potassium 4.8 mmol/L (3.5-5.1); Sodium 136 mmol/L (135-145); Total Bilirubin 0.8 mg/dl (0.2-1.3); eGFR > 60.00
[2023-06-25 07:34] VITALS: BP 123/72
[2023-06-25] MEDS: NORVASC 5 MG PO (07:40)
[2023-06-25] MEDS: LEXAPRO 10 MG PO (07:40)
[2023-06-25] MEDS: VITAMIN B1 100 MG PO (07:40)
[2023-06-25] MEDS: ASPIR LOW (ENTERIC COATED) 81 MG PO (07:40)
[2023-06-25] MEDS: VITAMIN B-12 1000 MCG PO (07:41)
[2023-06-25] MEDS: VITAMIN C 500 MG PO (07:41)
[2023-06-25] MEDS: HEPARIN 5000 UNITS SC ×2 (07:41→20:46)
[2023-06-25] MEDS: VIMPAT 200 MG PO ×2 (07:41→20:46)
--- NOTE | 2023-06-25 08:44 | CON.NEURO4 ---
Addendum entered and electronically signed by Kartik Rosales MD 06/25/23 10:41:
Studies reviewed.
I have personally examined the patient. I reviewed and agree with the CERTIFICATION OFFICER's Note.
My addenda:
Awake, alert, interactive. No acute distress.
Speech reduced output.
Follows 2-step requests w/ severe difficulty. No tremor.
Extra-ocular movements grossly intact.
Facial movements full and symmetric. Hearing intact to normal conversational volume.
Normal UE movements bilaterally.
Neck: full ROM.
Chest: no dyspnea
Heart: no JVD
Ext: (-) Clubbing, (-) Cyanosis, (-) Edema
IMPRESSIONS/RECOMMENDATIONS:
Abrupt onset of Ambulatory dysfunction worsening
Most likely secondary to orthostatic hypotension in a patient with likely Parkinson's disease and previous findings of orthostasis in addition to possible worsening of seizures producing symptomatology
Continue to follow orthostatic BPs
Abdominal binder to be provided
Consider Carbidopa/Levodopa, concern with further drop in BP possible
continue Lacosamide
decrease Primidone dosing due to risk of side-effects and no evidence of Essential Tremor from 100 mg to 50 mg
consider medications for memory stabilization
outpatient KATY scan
Will continue to follow patient.
Original Note:
Consultation - Neurology 4
-
CONSULTING PHYSICIAN: Kartik Rosales MD
REFERRING PHYSICIAN: Hospitalists/Dr. Hampton
DICTATED BY: KRISS Matthew
DATE/TIME OF REQUEST: 06/25/23
DATE/TIME OF CONSULTATION: 06/25/23
Reason for Consultation: Confusion, weakness
History of Present Illness:
This is a 78-year-old male who has presented to the hospital on 06/24/23 with report of worsening confusion and weakness. Patient has been evaluated by our Neurology service several times in the past for seizure disorder, ambulatory dysfunction, and
tremor. He was most recently evaluated by Dr. Denice Melton at [facility] for a second opinion.
From my previous evaluation on 04/09/23:
'This is a 77-year-old male who has presented to the hospital with report of seizure at home. Patient is known to our Neurology service and is followed by Dr. Cheema as an outpatient.
From previous encounter with Dr. Cheema on 11/28/22:
'Patient is a 77-year-old man with a past medical history of significant psychiatric history with alprazolam and bupropion overdose, depression, PTSD, former alcohol abuse, possible seizure presented to hospital with status epilepticus.
Patient's provides history and reports he has not had any recent medication changes or recent illnesses went to bed yesterday feeling fine yesterday has been feeling fine.� Around 5:30 AM this morning patient noted to have convulsive
generalized seizure activity with loss of consciousness and this persisted for around 10 to 15 minutes before EMS arrived and provided 2 mg IM midazolam which stopped the seizure activity.� He had recurrent seizure activity in the ambulance and
received 2 mg IV lorazepam which stopped the seizure activity.� In the ER he underwent CT head scan of the head and was given 1000 mg IV levetiracetam and then 300 mg IV lacosamide.� Patient's somnolent and postictal at this time not able provide
history.
Patient had recent hospitalization after questionable seizure activity on 09/12 there was concern on whether or not this was seizure versus night terror versus stress related event, he ultimately left AMA was not felt he would need to necessarily be
started on chronic antiseizure medications.� Psychiatric consultation felt that patient would not need to necessarily be stopped on bupropion given low-dose at 150 mg and at low-dose generally bupropion not highly contributory to seizure.'
From outpatient eCW Telephone encounter:
'Gabino Cheema 02/25/2023 12:06:57 PM > Patient around 3-4 weeks ago started to have walking issues with some mild left leg weakness noted when getting in and out of bed, some speaking not quite normally and confusion, stable since about 3-4 weeks
ago when it seemed to come on fairly suddenly, no headaches, has some mild back pain no urinary incontinence or retention or bowel incontinence, left arm is normal, no facial asymmetry. Will order MRI of the brain and L spine as some concern for a
stroke that could have happened 3-4 weeks ago versus a lumbar radiculopathy. No seizures since January 04 that led to ED visit and is on 750 mg Valproic acid and Lacosamide 200 mg BID.'
Patient completed MRI brain and lumbar testing on 03/26/23 due to new report of LLE weakness, abnormal speech, and confusion. MRI brain was negative for acute infarct/abnormality. MRI lumbar spine demonstrates degenerative disc disease worse at L2-L3
with foraminal stenosis, disc bulge at right L5 nerve root, but the left leg was the involved limb. He was then evaluated in the Neurology office on 03/27/23 and the decision was made to gradually wean him off of lacosamide in the hop of improving
his cognition and tremor. Lacosamide wean plan: 100 mg AM and 200 mg PM for 2 weeks. Then 100 mg BID for 2 weeks. Then 100 mg qhs for 2 weeks, then stop.
Today (04/09/23):
Yesterday evening (04/08/23) following dinner, patient was noted to have sudden onset of diaphoresis followed by bloody vomiting, his eyes rolled backwards, and his arm flailed. His family reports he did not lose consciousness, patient does not
recall this event. There was no tongue biting or urinary/bowel incontinence noted. In the ER, patient's Lacosamide dose was increased back up to 200mg BID and Depakote 750mg daily was continued. Valproic acid level is 91.1. He notably has an DONNY and
IVF were administered. Patient reports that he had a seizure yesterday, but describes going to several fireworks shows that induced the event. He is confused/poor historian and this information has been obtained from medical records. Currently, He
denies any headache, dizziness, vision changes, speech/swallow difficulty, nausea, numbness, chest pain, palpitations, and shortness of breath. He endorses chronic issues with nondescript weakness.'
Today (06/25/23): Patient is a poor historian and this information is obtained from his Jessica over the phone. Patient was evaluated by Dr. Denice Melton at [facility] twice since April 2023 for a second opinion regarding his
confusion, ambulatory dysfunction, and tremor. Patient's reports that they continued him on Vimpat 200mg BID since his last seizure on 03/29/23 occurred while weaning off of Vimpat. They did decide to discontinue his Depakote and weaned him off
of this over 6 weeks, he finished weaning last week. Patient's reports that initially he seem mentally more clear and his gait had improved, but over the past 5-7 days things has drastically worsened again. She also reports that his primidone
had been increased to 250mg daily but he did not tolerate this so it was decreased back to 100mg. She reports that they were told he might have Parkinson disease but he has not had any KATY scan imaging or been started on Sinemet yet. Patient's
reports that over the past week he has been more confused, having frequent episodes of urinary incontinence, his tremor has worsened, and then yesterday (06/24/23) he fell 4-5 times and was too weak to get off of the ground so she had to call EMS. At
baseline he has been using a wheelchair and he is supposed to use a walker for short distances but she reports that he doesn't like to use the walker. Patient can offer no insight as to recent events. CT head was obtained on arrival here and is
suggestive of NPH but no other acute abnormalities. Patient denies any headache, dizziness, vision changes, speech/swallow difficulty, numbness, weakness, urinary symptoms, chest pain, palpitations, and shortness of breath
Past Medical History: Cardiac arrest 03/2022 secondary to intentional overdose with benzodiazepines/bupropion, PTSD, depression, anxiety, seizure disorder, former heavy alcohol use, HTN, HLD, PAD, prostate cancer, cognitive impairment, movement
disorder
Surgical History: Prostatectomy, herniorrhaphy
Family History: Mother- stomach cancer
Social History: Former tobacco and alcohol usage. +Medical marijuana.
Allergies: Shellfish, morphine, statins.
Home Medications: See below.
Review of Symptoms:
Patient denies any fever, headache, chest pain, shortness of breath, GI or symptoms.
�Per the HPI.�All systems are reviewed negative except above.
Physical Exam:
The patient is afebrile, abdomen is nondistended, breathing is unlabored, skin is warm and dry, no edema. Some rosacea on forehead.
Neurologic Examination:
The patient is awake, alert and oriented to person and place not month/year. Speech is hypophonic. He is able to follow one-step commands and answer some questions appropriately. There is no aphasia or dysarthria. On cranial nerve assessment,
pupils are 3 mm bilateral, round and reactive to light and accommodation. Visual arora are full. Extraocular movements are intact. Facial sensations are intact and bilaterally symmetrical, there is no facial asymmetry. Hearing is intact bilaterally
to normal conversation volume. Tongue palate and uvula are midline. Sternocleidomastoid strengths are full bilaterally. Motor strengths are 5/5 bilateral upper and lower extremities on medical research [place] scale. There is no drift or involuntary
movement noted. Intermittent semirhythmic jaw tremor at rest and with exertion. Intermittent bilateral semirhythmic tremor R>L with exertion mostly. Slight asterixis in LUE. +Cogwheel rigidity in LUE >RUE. Deep tendon reflexes are 2+ bilateral upper
and lower extremities and Babinski is absent bilaterally. There was no extinction noted on double simultaneous stimulation. Coordination is intact by finger to nose bilaterally.
Lab Results: See below.
Neuro Imaging:
1. 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 Ex vacuo ventricular dilatation secondary to mild diffuse cerebral
and cerebellar volume loss is an alternative less likely diagnostic possibility. Moderate periventricular white matter leukoaraiosis in both frontal lobes. Transependymal flow of cerebrospinal fluid may be contributing to the periventricular white
matter low-attenuation in the frontal lobes. No CT evidence for acute intracranial hemorrhage or transcortical infarct.
Differentials for the patient's presentation include:
1. Concern for orthostasis and/or Parkinson disease contributing to patient's weakness, confusion.
2. Low concern for seizure.
3. Do not feel NPH is a contributing factor.
4. Metabolic abnormality possibly contributing to symptoms.
Patient has the following risk factors for their symptoms: Seizure disorder, tremor, lumbar stenosis
Recommendations:
-Check orthostatic vital signs BID.
-If orthostatic vital signs are negative, will consider initiating Sinemet.
-Continue home Vimpat 200mg BID and primidone 100mg HS.
-PT/OT/ST evaluations.
-DVT prophylaxis.
-Patient needs an outpatient KATY scan.
Discussed patient care with: Dr. Rosales, the patient
Vital Signs and Labs
-
Vital Signs and Labs:
Vital Signs
Temp Pulse Resp BP Pulse Ox
97.7 F 62 18 123/72 99
06/25/23 07:34 06/25/23 07:34 06/25/23 07:34 06/25/23 07:34 06/25/23 07:34
Lab Results
06/25/23 05:25
06/25/23 05:25
Sodium 136 mmol/L (135-145) 06/25/23 05:25
Potassium 4.8 mmol/L (3.5-5.1) 06/25/23 05:25
BUN 16 mg/dl (9-20) 06/25/23 05:25
Glucose 83 mg/dl (70-99) 06/25/23 05:25
Calcium 9.1 mg/dl (8.4-10.2) 06/25/23 05:25
Medications
-
Active Medications
Generic Name Dose Route Start Last Admin
Trade Name Freq PRN Reason Stop Dose Admin
Alprazolam 0.5 mg 06/24/23 21:51 06/24/23 22:39
Alprazolam 0.5 Mg Tablet PO 07/22/23 21:50 0.5 mg
TIDPRN PRN Administration
anxiety
Amlodipine Besylate 5 mg 06/25/23 08:00 06/25/23 07:40
Amlodipine 5 Mg Tablet PO 07/23/23 07:59 5 mg
DAILY OFELIA Administration
Ascorbic Acid 500 mg 06/25/23 08:00 06/25/23 07:41
Ascorbic Acid 500 Mg Tablet PO 07/23/23 07:59 500 mg
DAILY OFELIA Administration
Aspirin 81 mg 06/25/23 08:00 06/25/23 07:40
Aspirin 81 Mg (Enteric Coated) Tablet PO 07/23/23 07:59 81 mg
DAILY OFELIA Administration
Cyanocobalamin 1,000 mcg 06/25/23 08:00 06/25/23 07:41
Cyanocobalamin 1,000 Mcg Tablet PO 07/23/23 07:59 1,000 mcg
DAILY OFELIA Administration
Docusate Sodium 200 mg 06/24/23 21:51
Docusate Sodium 100 Mg Capsule PO 07/22/23 21:50
DAILYPRN PRN
constipation
Escitalopram Oxalate 10 mg 06/25/23 08:00 06/25/23 07:40
Escitalopram 10 Mg Tablet PO 07/23/23 07:59 10 mg
DAILY OFELIA Administration
Heparin Sodium 5,000 units 06/25/23 08:00 06/25/23 07:41
Heparin 5,000 Units/Ml 1 Ml Vial SC 07/23/23 07:59 5,000 units
Q12 OFELIA Administration
Lacosamide 200 mg 06/25/23 08:00 06/25/23 07:41
Lacosamide (Vimpat) 200 Mg Tablet PO 07/23/23 07:59 200 mg
BID OFELIA Administration
Primidone 100 mg 06/24/23 22:00 06/24/23 22:35
Primidone 50 Mg Tablet PO 07/22/23 21:59 100 mg
HS OFELIA Administration
Psyllium Hydrophilic Mucilloid 1 packet 06/24/23 21:56
Psyllium Packet PO 07/22/23 21:55
DAILYPRN PRN
Gastrointestinal Issue
Sodium Chloride 0 flush 06/24/23 22:00
Sodium Chloride 0.9% (Flush) Syringe IV 07/22/23 21:59
PER PROTOCOL OFELIA
Thiamine HCl 100 mg 06/25/23 08:00 06/25/23 07:40
Thiamine 100 Mg Tablet PO 07/23/23 07:59 100 mg
DAILY OFELIA Administration
Trazodone HCl 25 mg 06/24/23 21:51
Trazodone 50 Mg Tablet PO 07/22/23 21:50
HSPRN PRN
sleep
Home Medications
�Medication �Instructions �Recorded
alprazolam 0.5 mg tablet (Xanax) 0.5 mg PO TIDPRN PRN anxiety 09/12/22
amlodipine 10 mg tablet 5 mg PO DAILY Blood Pressure 09/12/22
ascorbic acid (vitamin C) 500 mg 500 mg PO DAILY Supplement 09/12/22
tablet (Vitamin C)
aspirin 81 mg tablet,delayed 81 mg PO DAILY Heart 09/12/22
release Disease/Condition
cyanocobalamin (vitamin B-12) 1,000 mcg PO DAILY Supplement 09/12/22
1,000 mcg tablet
docusate sodium 100 mg capsule 200 mg PO DAILYPRN PRN constipation 11/28/22
(Colace)
psyllium 1 packet PO DAILY PRN 11/28/22
Gastrointestinal Issue
lacosamide 200 mg tablet (Vimpat) 200 mg PO BID 30 days #60 tabs 11/30/22
escitalopram oxalate 10 mg tablet 10 mg PO DAILY Depression 04/08/23
thiamine HCl (vitamin B1) 100 mg 100 mg PO DAILY 30 days #30 tabs 04/10/23
tablet
primidone 50 mg tablet 100 mg PO HS 06/24/23
trazodone 50 mg tablet 25 mg PO HS PRN sleep 06/24/23
[2023-06-25 09:33] VITALS: BP 146/67; BP 147/72; BP 172/88; PULSE 103; PULSE 68; PULSE 77
--- NOTE | 2023-06-25 11:31 | W.PN.HOSP.TC ---
Today's Communication/Plan
-
.
Assessment / Plan
Assessment / Plan
Physical Exam
General: No Apparent Distress
HEENT: Normocephalic, Moist mucous membranes and Atraumatic
Respiratory: Clear
Cardiac: S1/S2
GI: Soft, Non Tender, Non Distended
Rectal: No rectal bleeding
Musculoskeletal: No Clubbing, No Cyanosis and No Edema
Skin: No Rash
Neuro: Awake, oriented to person, place. He followed commands.
Psych: no agitation.
# Progressive weakness, falls, urinary incontinence concerning for progressive underlying parkinsonism
UA was clear
No fevers. No leukocytosis. No headache.
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
-Checked orthostatic vitals this morning was normal
Patient was seen by neurology, decreased the dose of Primidone.
# Urinary incontinence
-likely part of worsening cognitive function,? dementia Vs Normal pressure hydrocephalus
Cognitive impairment likely due to underlying Parkinson's
-Cogwheeling, intention tremor on examination suggesting underlying Parkinson's
Seizure history
-Depakote weaned off
-Continue lacosamide
-Continue primidone
Coronary artery disease/PAD
-Continue aspirin
Prostate cancer status post prostatectomy
History of orthostatic hypotension
History of essential hypertension
Anxiety/PTSD
-Continue as needed Xanax, Lexapro
-Continue trazodone
DNR/DNI
DVT prophylaxis�heparin
Regular diet
Total time spent to see patient, examine the patient on the floor, review data and lab results, discuss treatment plan with patient, nursing staff around 55 minutes
Anticipated Discharge: Within 24 hours
Subjective/Interval History
-
Date of Service: June 25, 2023
No chest pain, no sob
No abd pain
Objective Data
-
Labs:
Laboratory Results
06/25/23
05:25
WBC 5.3
Hgb 13.2
Hct 39.0
Plt Count 170
Sodium 136
Potassium 4.8
Chloride 110 H
Carbon Dioxide 23
BUN 16
Creatinine 1.0
Glucose 83
Calcium 9.1
Total Bilirubin 0.8
AST 32
ALT 24
Alkaline Phosphatase 72
Vital Signs:
Vital Signs
Temp Pulse Resp BP Pulse Ox
97.7 F 62 18 123/72 99
06/25/23 07:34 06/25/23 07:34 06/25/23 07:34 06/25/23 07:34 06/25/23 07:34
I&O
06/24/23 06/25/23 06/26/23
06:59 06:59 06:59
Intake Total 240 / 240
Output Total 625 / 625
Balance -385 / -385
[2023-06-25 12:00] VITALS: BP 162/73; PULSE 74; O2SAT 97
--- NOTE | 2023-06-25 13:30 | CM ---
Addendum entered by Nakita Soria 06/25/23 16:20:
Received call from pts , Jessica Hayden
Pts choices for snf are [facility] and [facility]
Referral sent in [facility]
Plan - snf at d/c - tbd
Addendum entered by Nakita Soria 06/25/23 14:44:
Received call from Galina at [facility] [phone]
Pt active with HH - RN/PT
Requested updates thru [facility]. If pt goes to SNF requested to be updated
CM called pts to discuss SNF options
Reports pt has been to [facility] in past. Will leave SNF options list at bedside for pt and to review
Original Note:
Met with pt at bedside
H/O Parkinsons and falls
Pt reports he lives with his in an apartment (FF, no steps to enter)
Reports needs assist with adl's, ambulates slowly with walker
DME - rolling walker, cane, shower chair
Denies past snf/HH
Has ride at d/c
PCP - Ramona Mckenzie
Pharm - [facility]
PT/OT recommending snf at d/c - discussed with pt and given options list
Pt reporting his is on her way to hospital - she makes decisions - will check back in with pt and his
Given POND
Plan - anticipate d/c to snf when medically ready, tbd. Will need auth
[2023-06-25 15:18] VITALS: BP 141/77
[2023-06-25] MEDS: XANAX 0.5 MG PO ×2 (17:16→21:40)
[2023-06-25] MEDS: MYSOLINE 50 MG PO (21:41)
[2023-06-25 23:45] VITALS: BP 134/79
--- NOTE | 2023-06-26 04:53 | DOWNTIME ---
There was a [employer] Downtime on 06/26/2023 from 0100 to 06/26/2023 at 0439. Downtime documentation of patient's care, including medication administrations, has been reconciled in the electronic record per guidelines. Refer to the
patient's paper chart under the miscellaneous tab to see printed paper medication records and downtime forms.
[2023-06-26 07:54] VITALS: BP 148/80
[2023-06-26] MEDS: SINEMET 25-100 1 TABLET PO ×3 (08:45→21:35)
[2023-06-26] MEDS: VIMPAT 200 MG PO ×2 (08:46→21:35)
[2023-06-26] MEDS: ASPIR LOW (ENTERIC COATED) 81 MG PO (08:46)
[2023-06-26] MEDS: LEXAPRO 10 MG PO (08:46)
[2023-06-26] MEDS: VITAMIN B-12 1000 MCG PO (08:46)
[2023-06-26] MEDS: NORVASC 5 MG PO (08:46)
[2023-06-26] MEDS: HEPARIN 5000 UNITS SC ×2 (08:46→21:36)
[2023-06-26] MEDS: VITAMIN C 500 MG PO (08:46)
[2023-06-26] MEDS: VITAMIN B1 100 MG PO (08:46)
--- NOTE | 2023-06-26 09:25 | W.PN.NEURO.1 ---
Today's Communication / Plan
-
Continue to follow orthostatic BPs
Abdominal binder for orthostasis
Start Carbidopa/Levodopa
continue Lacosamide
stop Primidone dosing
consider medications for memory stabilization
outpatient KATY scan
Neuro Assessment/Plan
Assessment
IMPRESSIONS/RECOMMENDATIONS:
Abrupt onset of Ambulatory dysfunction worsening
Most likely secondary to orthostatic hypotension in a patient with likely Parkinson's disease and previous findings of orthostasis in addition to possible worsening of seizures producing symptomatology
Plan
Continue to follow orthostatic BPs
Abdominal binder for orthostasis
Start Carbidopa/Levodopa
continue Lacosamide
stop Primidone dosing
consider medications for memory stabilization
outpatient KATY scan
Will follow as needed.
Subjective/Objective
Subjective Data
Date of Service: June 26, 2023
Patient unaware of new symptoms.
Objective Data
Vital Signs
Temp Pulse Resp BP Pulse Ox
36.4 C 67 17 148/80 98
06/26/23 07:54 06/26/23 07:54 06/26/23 07:54 06/26/23 07:54 06/26/23 07:54
Lab Results
06/25/23 05:25
06/25/23 05:25
Sodium 136 mmol/L (135-145) 06/25/23 05:25
Potassium 4.8 mmol/L (3.5-5.1) 06/25/23 05:25
BUN 16 mg/dl (9-20) 06/25/23 05:25
Glucose 83 mg/dl (70-99) 06/25/23 05:25
Calcium 9.1 mg/dl (8.4-10.2) 06/25/23 05:25
Patient Allergies
morphine Allergy (Verified 06/24/23 17:13)
Itching
shellfish derived Allergy (Verified 06/24/23 17:13)
Tongue Swelling
Nnbwria-KFC-YcE Reductase Inhibitor [Dylzezd-Dyn-Ipo Reductase Inhibitor] Allergy (Verified 06/24/23 17:13)
Swelling
Review of Systems
-
Unable to obtain full review of systems at this time due to: Dementia
History Source: Patient
All other systems: Reviewed and negative
Physical Exam
-
General: No Apparent Distress and Appears Stated Age
Eyes: Round OU, [place] Conjunctivae and No Ptosis
HEENT: Anicteric and Moist Mucous Membranes
Neck: Full Range of Motion
Respiratory: No Dyspnea
Cardiac: No JVD
Skin: Unremarkable
Extremities: No Clubbing, No Cyanosis and No Edema
Psych: Negative Intact Judgement/Insight
Extended Neurological Exam
Mood & Affect: Mood Unremarkable and Affect Unremarkable
Attention Span & Concentration: Awake, Alert and Interactive
Memory: Reduced
Tremor: Negative Hand Tremor Absent or Head Tremor Absent
Speech: Quality Unremarkable and Mildly Reduced Output
Cranial Nerve II: Left Eye: Pupillary Size Unremarkable and Visual Arias Grossly Intact
Cranial Nerve II: Right Eye: Pupillary Size Unremarkable and Visual Arias Grossly Intact
Cranial Nerves III, IV, : Extraocular Movement: Grossly Intact
Cranial Nerve VII: Facial Symmetry: Normal Facial Symmetry
Cranial Nerve VIII: Hearing: Unremarkable Hearing to Normal Conversational Volume
Cranial Nerve XI: Shoulder Shrug: Unremarkable
Muscle Strength, Overall: Spontaneously Moves (All extremities)
Muscle Bulk & Tone: Bulk Unremarkable and Tone Unremarkable
Data Reviewed
-
Orthostatic Testing: Report Reviewed
Labs: Report Reviewed
Reviewed with: Physician
Old Records: Summarized
--- NOTE | 2023-06-26 11:21 | W.PN.HOSP.TC ---
Today's Communication/Plan
-
.
Assessment / Plan
Assessment / Plan
Physical Exam
General: No Apparent Distress
HEENT: Normocephalic, Moist mucous membranes and Atraumatic
Respiratory: Clear
Cardiac: S1/S2
GI: Soft, Non Tender, Non Distended
Rectal: No rectal bleeding
Musculoskeletal: No Clubbing, No Cyanosis and No Edema
Skin: No Rash
Neuro: Awake, oriented to person, place. He followed commands.
Psych: no agitation.
# Progressive weakness, falls, urinary incontinence concerning for progressive underlying parkinsonism Vs newly diagnosed Parkinson's disease
UA was clear
No fevers. No leukocytosis. No headache.
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
-Checked orthostatic vitals this morning was normal
Patient was seen by neurology, decreased the dose of Primidone.
d/w pt, agree to try low dose Sinemet
d/w , she was agreeable
d/w neurology, doubt hydrocephalus causing the problem
Will consult Acute rehab doctor
appreciate neurology input
# Urinary incontinence
-likely part of worsening cognitive function, neurologic disease
Do bladder scan
Cognitive impairment likely due to underlying Parkinson's
-Cogwheeling, intention tremor on examination suggesting underlying Parkinson's
Seizure history
-Depakote weaned off
-Continue lacosamide
-Continue primidone
Coronary artery disease/PAD
-Continue aspirin
Prostate cancer status post prostatectomy
History of orthostatic hypotension
History of essential hypertension
Anxiety/PTSD
-Continue as needed Xanax, Lexapro
-Continue trazodone
DNR/DNI
DVT prophylaxis�heparin
Regular diet
Total time spent to see patient, examine the patient on the floor, review data and lab results, discuss treatment plan with patient, nursing staff around 55 minutes
Anticipated Discharge: 24 - 48 hours
Subjective/Interval History
-
Date of Service: June 26, 2023
No pain issues
No sob
Objective Data
-
Vital Signs:
Vital Signs
Temp Pulse Resp BP Pulse Ox
97.6 F 67 17 148/80 98
06/26/23 07:54 06/26/23 07:54 06/26/23 07:54 06/26/23 07:54 06/26/23 10:24
I&O
06/25/23 06/26/23 06/27/23
06:59 06:59 06:59
Intake Total 240 / 240 420 / 420
Output Total 625 / 625 50 / 50
Balance -385 / -385 370 / 370
[2023-06-26] MEDS: XANAX 0.5 MG PO ×2 (12:15→16:41)
--- NOTE | 2023-06-26 15:26 | CM ---
Case Management following for d/c planning
PT/OT recs SNF - choices obtained
[facility] - [facility] beds
[facility] can accept tomorrow
Dr Hampton consulted PM&R
Plan - pending PM&R consult - acute rehab vs snf - will need auth
[2023-06-26 15:47] VITALS: BP 122/67
[2023-06-26] MEDS: DESYREL 25 MG PO (21:35)
--- NOTE | 2023-06-26 21:56 | CON.MD ---
Consultation - Medical
-
Referring Provider: Dr. Doug Hampton
Chief Complaint: Parkinson disease
History of Present Illness: 78 y/o M PMH (as below) presented to [facility] on 06/24/23 with a few days of progressive weakenss, falls nad tremors, as well as urinary incontinence and cognitive decline. Found to have urinary retention.
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 Ex vacuo ventricular dilatation secondary to mild diffuse cerebral and
cerebellar volume loss is an alternative less likely diagnostic possibility. Moderate periventricular white matter leukoaraiosis in both frontal lobes. Transependymal flow of cerebrospinal fluid may be contributing to the periventricular white
matter low-attenuation in the frontal lobes. No CT evidence for acute intracranial hemorrhage or transcortical infarct.
Neurology feels Parkinson disease is the most likely cause. Sinemet started. Monitor for orthostasis concerns. alking better and feeling better after starting sinemet. No swallowing difficulty. Tremors better on sinemet, start to increase again
later on between doses.
Past Medical History: CAD, PAD, prostate cancer status post prostatectomy, orthostatic hypotension, parkinsonism, dementia, hypertension, seizures, anxiety, PTSD, Cardiac arrest 03/2022 secondary to intentional overdose with
benzodiazepines/bupropion, orthostasis
Procedure History: Prostatectomy, Hernia repair
Family History: Mother- stomach cancer
Social History:
Functional Level Premorbidly: Independent in past but needing significant help with all activities prior to admission.
Functional Level Currently:�� Dependent LE dressing, Mod A bed mobility and transfers. Mod A ambulaitng 10 feet [facility] RW.
Tobacco: Former Smoker
Alcohol: former
Drug use: Medical marijuana
Lives with: spouse
24-hour assistance available: Yes
Number of floors: 1
# steps to enter: 1:
Driving: No
Occupation: Retired [email or web address]
Allergies:
Allergy/AdvReac Type Severity Reaction Status Date / Time
morphine Allergy Itching Verified 06/24/23 17:13
shellfish derived Allergy Tongue Verified 06/24/23 17:13
Swelling
Svmwzoc-OHH-IrD Reductase Allergy Swelling Verified 06/24/23 17:13
Inhibitor
[Gjffwia-Dht-Ggo Reductase
Inhibitor]
Review of Systems:
Constitutional: (x) abNormal _ fatigue
Eye: (x) Normal _
Ear/Nose/Throat: (x) Normal _
Respiratory: (x) Normal _
Cardiovascular: (x) Normal _
Gastrointestinal: (x) Normal _
Genitourinary: (x) Normal _
Musculoskeletal: (x) Normal _
Integumentary: (x) Normal _
Neurologic: (x) abNormal _anxiety about tremors, Xanax helps.
Psychiatric: (x) Normal _
Endocrine: (x) Normal _
Hematologic/Lymphatic: (x) Normal _
Allergic/Immunologic: (x) Normal _
Medications:
Active Current Visit Medication List
Category Date Time Status
Alprazolam [Xanax] Med 06/24/23 21:51 Active
0.5 mg PO TIDPRN PRN
Amlodipine [Norvasc] Med 06/25/23 08:00 Active
5 mg PO DAILY
Ascorbic Acid [Vitamin C] Med 06/25/23 08:00 Active
500 mg PO DAILY
Aspirin Low Dose EC [Aspir Low (Enteric Coated)] Med 06/25/23 08:00 Active
81 mg PO DAILY
Carbidopa/Levodopa [Sinemet 25-100] Med 06/26/23 08:00 Active
1 tablet PO TID
Cyanocobalamin [Vitamin B-12] Med 06/25/23 08:00 Active
1,000 mcg PO DAILY
Docusate Sodium [Colace] Med 06/24/23 21:51 Active
200 mg PO DAILYPRN PRN
Escitalopram Oxalate [Lexapro] Med 06/25/23 08:00 Active
10 mg PO DAILY
Flush (0.9% Sodium Chloride) [Flush (Nss)] Med 06/24/23 22:00 Active
See Dose Instructions IV PER PROTOCOL
Heparin Med 06/25/23 08:00 Active
5,000 units SC Q12
Lacosamide [Vimpat] Med 06/25/23 08:00 Active
200 mg PO BID
Psyllium [Metamucil, Konsyl] Med 06/24/23 21:56 Active
1 packet PO DAILYPRN PRN
Thiamine HCl [Vitamin B1] Med 06/25/23 08:00 Active
100 mg PO DAILY
Trazodone [Desyrel] Med 06/24/23 21:51 Active
25 mg PO HSPRN PRN
Vitals:
Temp Pulse Resp BP Pulse Ox
98.5 F 89 16 122/67 95
06/26/23 15:47 06/26/23 15:47 06/26/23 15:47 06/26/23 15:47 06/26/23 15:47
Height 5 ft 6 in
Actual Weight 68.181 kg
Body Mass Index (BMI) 24.3
Physical Exam:
General Appearance/Observation: Well-developed, well-nourished male in no apparent distress. Does have some tremors bilaterally.
Pain/Comfort Assessment: Denies
Mood/Affect: Appropriate
Integumentary/Operative Site:
�� Pressure Ulcer Evaluation: absent over heels.
Eyes: Conjunctiva/Lids: normal ��� Pupils: pupils equal round and reactive to light and Accommodation
Ears/Nose/Throat: oral mucosa moist,� throat clear.������������ Lips/Teeth/Gums: normal
Cardiovascular: Heart: regular, no murmur
Pulses: dorsalis pedis 2+ bilaterally
Respiratory: Respiratory Effort/Chest Expansion: normal ������ Auscultation: Clear to auscultation bilaterally
Gastrointestinal: abdomen not tender, no distension, normal abdominal bowel sounds
Genitourinary: No Reid
Extremities: Edema: None Cyanosis: None Trophic changes: None
Neurology Exam:
Orientation: Alert, Oriented to self, Place, not time.
Memory: Impaired
Comprehension: Intact for basic info
Two step command: Impaired
Cranial Nerves:
�� CNII: Pupillary light reflex: Intact��� Visual Field: Intact
�� CN III, IV, : Extraocular muscles: Intact
�� CN V: Facial Sensation at Forehead: Intact, Maxilla: Intact, Mandible: Intact
�� CN VII: Facial movement: Symmetric
�� CN VIII: Hearing: Normal
�� CN IX/X: Speech & swallow: Normal, Position of Uvula: Midline
�� CN XI: Shoulder shrug: Symmetric
�� CN XII: Tongue protrusion: Midline
Sensory:
�� Light touch: Intact in bilateral upper and lower extremities
Reflexes:
�� Biceps: 2+ bilaterally
�� Brachioradialis: 2+ bilaterally
�� Triceps: 2+ bilaterally
�� Patellar: 2+ bilaterally
�� Achilles: 2+ bilaterally
�� Babinski: Down going bilaterally
�� Clonus: None
�� En: Negative bilaterally
Cerebellar: Dysmetria/Ataxia: None
Musculoskeletal: Motor: (Manual muscle scale 0-5)
Muscle SA EF WE EE FF FA HF KE DF EHL PF
Right� 5 5 5 5 5 5 4 5 5 5 5
Left 5 5 5 5 5 5 4 5 5 5 5
Tone: Normal in all extremities
Range of Motion: Passively within normal limits in all extremities
Lab Results
Laboratory Data
06/25/23 05:25
06/25/23 05:25
Total Bilirubin 0.8 mg/dl (0.2-1.3) 06/25/23 05:25
AST 32 U/L (17-59) 06/25/23 05:25
ALT 24 U/L (0-50) 06/25/23 05:25
Alkaline Phosphatase 72 U/L (38-126) 06/25/23 05:25
Total Protein 6.0 g/dl (6.3-8.2) L 06/25/23 05:25
Albumin 3.4 g/dl (3.5-5.0) L 06/25/23 05:25
Diagnostic Results: as per HPI
Assessment
78 y/o M PMH (CAD, PAD, prostate cancer status post prostatectomy, orthostatic hypotension, parkinsonism, dementia, hypertension, seizures, anxiety, PTSD, Cardiac arrest 03/2022 secondary to intentional overdose with benzodiazepines/bupropion,
orthostasis) with Concern for Parkinson's disease causing ambulatory and cognitive dysfunction.
Plan
PM&R PT/OT to increase independence with ADLs, improve balance, coordination, endurance, strength, mobility, community reintegration, decreased burden of care on others and family education.
Debility with falls, cognitive decline, orthostasis - Concern for Parkinson's disease: Started on Sinemet. PT/OT/Speech.
-Sinemet seems to be wearing off, needs more frequency.
HTN: amlodipine 5 mg daily, monitor closely
HLD: Statin
Coronary artery disease : Aspirin, statin, beta-nedra
Peripheral artery disease : aspirin, statin
Orthostasis:
-Can be from Parkinson's disease.�
-Thigh-high teds and abdominal binder first in the morning and off at bedtime.
-Must maintain hydration.� IV fluid as necessary.
-Midodrine at 0600 before getting out of bed and sitting for 30 minutes and 1200.�Would avoid evening dose with possible increase in blood pressure in supine position.
-Suggest being up out of bed is much as possible throughout the day.�
-Increase leg and arm exercises to help with increasing blood pressure particularly prior to sitting or standing up.
Seizures: lacosamide
Anxiety/PTSD: Psychology consult.� Monitor mood, adjust escitalopram as needed. Trazodone PRN sleep.
Skin: monitor for pressure sores/rashes/lesions.
Pain: acetaminophen as needed.
Bowel: Colace and Senna, PRN bisacodyl.
Bladder: Time void, PVRs, PRN straight cath.
DVT Prophylaxis: mechanical and heparin
Pulmonary: Incentive spirometry
Safety: Continue to reinforce assistance with all transfers.
Code Status:�DNR per chart
Dispo (date/plan/equipment needs): Home with family care.
Functional and Medical Goals: Modified Independent with ADL�s, ambulation, transfers
Discharge Destination: Acute inpatient rehabilitation
A total of 60 minutes were spent with the patient preparing for the evaluation, obtaining history, performing examination and evaluation, counseling, data review, case management, care coordination, order planner, and EMR documentation.
Summary of recommendations:
- Discharge Destination: Acute inpatient rehabilitation
Debility with falls, cognitive decline, orthostasis - Concern for Parkinson's disease: Started on Sinemet. PT/OT/Speech.
-Sinemet seems to be wearing off, needs more frequency.
Orthostasis:
-Can be from Parkinson's disease.�
-Thigh-high teds and abdominal binder first in the morning and off at bedtime.
-Must maintain hydration.� IV fluid as necessary.
-Midodrine at 0600 before getting out of bed and sitting for 30 minutes and 1200.�Would avoid evening dose with possible increase in blood pressure in supine position.
-Suggest being up out of bed is much as possible throughout the day.�
-Increase leg and arm exercises to help with increasing blood pressure particularly prior to sitting or standing up.
Anxiety/PTSD: Psychology consult.� Monitor mood, adjust escitalopram as needed. Trazodone PRN sleep.
Bowel: Colace and Senna, PRN bisacodyl.
Bladder: Time void, PVRs, PRN straight cath.
DVT Prophylaxis: mechanical and heparin
Thank you for allowing me to care for your patient. Please contact me with any questions or concerns.
[2023-06-26 23:15] VITALS: BP 118/71
[2023-06-27 07:29] VITALS: BP 139/70
[2023-06-27 09:44] VITALS: BP 147/71; BP 160/81; PULSE 69
[2023-06-27] MEDS: VIMPAT 200 MG PO ×2 (10:02→21:40)
[2023-06-27] MEDS: NORVASC 5 MG PO (10:02)
[2023-06-27] MEDS: VITAMIN B-12 1000 MCG PO (10:02)
[2023-06-27] MEDS: ASPIR LOW (ENTERIC COATED) 81 MG PO (10:02)
[2023-06-27] MEDS: SINEMET 25-100 1 TABLET PO ×3 (10:02→21:48)
[2023-06-27] MEDS: LEXAPRO 10 MG PO (10:02)
[2023-06-27] MEDS: VITAMIN C 500 MG PO (10:03)
[2023-06-27] MEDS: HEPARIN 5000 UNITS SC ×2 (10:03→21:40)
[2023-06-27] MEDS: VITAMIN B1 100 MG PO (10:06)
[2023-06-27] MEDS: XANAX 0.5 MG PO ×2 (10:09→16:12)
--- NOTE | 2023-06-27 11:09 | W.PN.HOSP.TC ---
Today's Communication/Plan
-
likely dc in am
possible acute rehab
Assessment / Plan
Assessment / Plan
Physical Exam
General: No Apparent Distress
HEENT: Normocephalic, Moist mucous membranes and Atraumatic
Respiratory: Clear
Cardiac: S1/S2
GI: Soft, Non Tender, Non Distended
Rectal: No rectal bleeding
Musculoskeletal: No Clubbing, No Cyanosis and No Edema
Skin: No Rash
Neuro: Awake, oriented to person, place. He followed commands.
Psych: no agitation.
# progressive underlying parkinsonism Vs newly diagnosed Parkinson's disease
Patient reports feeling better with Sinemet, Pt reports ( I feel I can move and do anything now),
UA was clear
No fevers. No leukocytosis. No headache.
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
-Checked orthostatic BP, was normal
Stopped Primidone.
d/w neurology, ok to try Sinemet
d/w , she was agreeable to try Parkinson medicine
d/w neurology, doubt hydrocephalus causing the problem
Consulted Acute rehab doctor , appreciate help
appreciate neurology input
# Urinary incontinence
-likely part of worsening cognitive function, neurologic disease
Do bladder scan
Cognitive impairment likely due to underlying Parkinson's
-Cogwheeling, intention tremor on examination suggesting underlying Parkinson's
Seizure history
-Depakote weaned off
-Continue lacosamide
-Continue primidone
Coronary artery disease/PAD
-Continue aspirin
Prostate cancer status post prostatectomy
History of orthostatic hypotension
History of essential hypertension
Anxiety/PTSD
-Continue as needed Xanax, Lexapro
-Continue trazodone
DNR/DNI
DVT prophylaxis�heparin
Regular diet
Total time spent to see patient, examine the patient on the floor, review data and lab results, discuss treatment plan with patient, nursing staff around 45 minutes
Anticipated Discharge: Within 24 hours
Subjective/Interval History
-
Date of Service: June 27, 2023
He feels better
No Pain issues
No chest pain or sob
Objective Data
-
Vital Signs:
Vital Signs
Temp Pulse Resp BP Pulse Ox
97.5 F 65 16 139/70 98
06/27/23 07:29 06/27/23 07:29 06/27/23 07:29 06/27/23 07:29 06/27/23 07:29
I&O
06/26/23 06/27/23 06/28/23
06:59 06:59 06:59
Intake Total 420 / 420 100 / 100
Output Total 50 / 50 400 / 400
Balance 370 / 370 -300 / -300
--- NOTE | 2023-06-27 15:01 | CM ---
Pt accepted to [facility]
Discussed with pt and at bedside
Initiated auth with [employer] [phone]
Given ref # [id number]
Clinicals faxed to [phone]
Plan - when medically ready [facility], pend auth
[2023-06-27 15:46] VITALS: BP 131/65; PULSE 88; O2SAT 96
[2023-06-27 16:06] VITALS: BP 137/65
[2023-06-27 23:32] VITALS: BP 140/66
[2023-06-28 07:47] VITALS: BP 156/80
[2023-06-28] MEDS: LEXAPRO 10 MG PO (07:58)
[2023-06-28] MEDS: HEPARIN 5000 UNITS SC (07:58)
[2023-06-28] MEDS: VITAMIN C 500 MG PO (07:58)
[2023-06-28] MEDS: VITAMIN B-12 1000 MCG PO (07:58)
[2023-06-28] MEDS: SINEMET 25-100 1 TABLET PO (07:58)
[2023-06-28] MEDS: VITAMIN B1 100 MG PO (07:58)
[2023-06-28] MEDS: ASPIR LOW (ENTERIC COATED) 81 MG PO (07:58)
[2023-06-28] MEDS: XANAX 0.5 MG PO ×2 (07:58→13:15)
[2023-06-28] MEDS: NORVASC 5 MG PO (07:58)
[2023-06-28] MEDS: VIMPAT 200 MG PO (07:59)
--- NOTE | 2023-06-28 10:31 | W.DCSUMMARY ---
Discharge Summary
Discharge Data
Date of Admission: 06/26/23
Date of Discharge: 06/28/23
-
Pending Results: No
Hospital Course
78 years old male admitted with weakness, gait dysfunction that was worsening over the last few weeks. He denied urinary symptoms. His reported more confusion with worsening tremors at home. Patient was following with outpatient
neurologist. He was recently weaned off Depakote. No history of recurrent seizures. Scan of the head showed moderate diffuse dilatation of the ventricular system, most suggestive of normal pressure communicating hydrocephalus, moderate
periventricular white matter leukoaraiosis in the frontal lobes. Orthostatic blood pressure was normal in the hospital. Neurologist followed the patient. Primidone was stopped. Patient had clinical signs of Parkinson disease. He was started on
low-dose Sinemet. Patient started to improve and he felt more free to move. Per neurology, hydrocephalus was not the culprit and seemed mild. Patient did not have signs of acute infection. No fevers. No leukocytosis. He did not have headache.
Urine test was clean. Patient was evaluated by physical therapy and recommended alf facility placement. Patient remained hemodynamically stable and was discharged in a stable condition.
Physical Exam
General: No Apparent Distress
HEENT: Normocephalic, Moist mucous membranes and Atraumatic
Respiratory: Clear
Cardiac: S1/S2
GI: Soft, Non Tender, Non Distended
Rectal: No rectal bleeding
Musculoskeletal: No Clubbing, No Cyanosis and No Edema
Skin: No Rash
Neuro: Awake, oriented to person, place. He followed commands. Positive tremor. Positive cogwheel rigidity.
Psych: no agitation. Pleasant.
Total discharge time spent to see patient, examine the patient on the floor, review data and lab results, discuss discharge plan with patient, nursing staff around 65 minutes
Discharge Plan
-
Patient Disposition: Intermediate/SNF
Discharge Diagnosis/Procedures: Suspect primary Parkinson disease, newly diagnosis, started on low-dose Sinemet.
Depression, anxiety
Seizure disorder
Former heavy alcohol use
Primary hypertension
Hyperlipidemia
Peripheral arterial disease
History of prostate cancer
Diet: As tolerated and Regular
Referrals:
Gabino Cheema MD [Active] - in one to two weeks (Patient will need to follow-up with neurology to titrate his medications)
Ramona Mckenzie DO [Family Provider] -
Prescriptions:
New
carbidopa-levodopa 25-100 mg Tablet
1 tab PO TID Qty: 90 0RF
polyethylene glycol 3350 [Miralax] 17 gram powder in packet
17 g PO DAILY Qty: 30 0RF
Continued
cyanocobalamin (vitamin B-12) 1,000 mcg Tablet
1,000 mcg PO DAILY
aspirin 81 mg Tablet,Delayed Release (Dr/Ec)
81 mg PO DAILY
ascorbic acid (vitamin C) [Vitamin C] 500 mg Tablet
500 mg PO DAILY
amlodipine 10 mg tablet
5 mg PO DAILY
Hold Instructions: Resume on 05/01/23. until cleared by pcp
psyllium Packet
1 packet PO DAILY PRN (Reason: Gastrointestinal Issue)
docusate sodium [Colace] 100 mg Capsule
200 mg PO DAILYPRN PRN (Reason: constipation)
lacosamide [Vimpat] 200 mg tablet
200 mg PO BID 30 Days Qty: 60 0RF
Patient Comments:
06/24/2023: last filled 06/13/23, 60 tabs for 30 days
escitalopram oxalate 10 mg tablet
10 mg PO DAILY
thiamine HCl (vitamin B1) 100 mg Tablet
100 mg PO DAILY 30 Days Qty: 30 0RF
trazodone 50 mg tablet
25 mg PO HS PRN (Reason: sleep)
alprazolam [Xanax] 0.5 mg Tablet
0.5 mg PO TIDPRN PRN (Reason: anxiety, tremors) Qty: 0 0RF
Patient Comments:
06/24/2023: last filled 04/16/23, 90 tabs for 30 days from [facility]
Discontinued
primidone 50 mg tablet
100 mg PO HS
Discharge Orders:
Discharge Patient (As Directed); Ordered 06/28/23
Ordered By: Doug Hapmton
Discharge Date and Time
Print Language: EGYPTIAN
--- NOTE | 2023-06-28 11:05 | CM ---
Addendum entered by Lata Styles 06/28/23 12:55:
Met with patient at bedside; agreeable with discharge to [facility]
Ambulance casino operations supervisor scheduled for 1400
Report #[phone]
FAX# [phone]
Original Note:
Plan: discharge to [facility] today via ambulance
[employer] approved authorization for skilled bed for 06/28/23; next review 07/02/23; Franki Zavala #[phone]; fax # [phone]
Auth #[id number]
Reference # [id number]
Report #[phone]
FAX# [phone]
[2023-06-28 12:59] VITALS: BP 138/67
== END 2023-06-28 14:42 | DRG 57 ==
LOC: 3 WEST ACU 08:27
PROVIDERS: ADMITTING PHYSICIAN Hospitalist; ATTENDING PHYSICIAN Internal Medicine; CONSULT PHYSICIAN Physical Medicine & Rehabilitation; EMERGENCY PHYSICIAN Emergency Medicine; FAMILY PHYSICIAN Family Medicine; OTHER PHYSICIAN Psychiatry & Neurology Neurology
DX: G20.A1 Parkinson's disease without dyskinesia, without mention of fluctuations (principal); F02.83 Dementia in other diseases classified elsewhere, unspecified severity, with mood disturbance; G91.0 Communicating hydrocephalus; R53.1 Weakness; R29.6 Repeated falls; G40.909 Epilepsy, unspecified, not intractable, without status epilepticus; F43.10 Post-traumatic stress disorder, unspecified; F32.A Depression, unspecified; I25.10 Atherosclerotic heart disease of native coronary artery without angina pectoris; I95.1 Orthostatic hypotension; I73.9 Peripheral vascular disease, unspecified; G25.2 Other specified forms of tremor; R41.89 Other symptoms and signs involving cognitive functions and awareness; R33.9 Retention of urine, unspecified; R32 Unspecified urinary incontinence; F10.11 Alcohol abuse, in remission; I10 Essential (primary) hypertension; Z66 Do not resuscitate; Z91.51 Personal history of suicidal behavior; Z86.74 Personal history of sudden cardiac arrest; Z87.891 Personal history of nicotine dependence; Z79.82 Long term (current) use of aspirin; Z85.46 Personal history of malignant neoplasm of prostate; Z90.79 Acquired absence of other genital organ(s); Z88.8 Allergy status to other drugs, medicaments and biological substances; Z88.5 Allergy status to narcotic agent; Z91.013 Allergy to seafood; Z80.0 Family history of malignant neoplasm of digestive organs
CPT/HCPCS: 70450; 80053; 81003; 85025; 93005; 97116; 97163; 97166; 97530; 97535; 99285

== ENCOUNTER 2023-11-02 11:56 | Inpatient (IN) | payer OTHER, SELFPAY ==
[2023-11-02] VITALS (12 sets, daily range): BP systolic 112–143; BP diastolic 41–76; BMI 23.2; BMI 26.1
--- NOTE | 2023-11-02 08:06 | EDRN ---
Dr. Evans currently at the pts bedside
[2023-11-02 08:09] LABS: Glucose - Point of Care 154 mg/dl (70-99)
[2023-11-02 08:25] LABS: % Basophils 0.9 % (0-2); % Eosinophils 2.2 % (0-6); % Immature Granulocytes 0.2 % (0-0.5); % Lymphocytes 23.4 % (20.5-51.1); % Monocytes 6.1 % (1.7-9.3); % Neutrophils 67.2 % (42.2-75.2); Absolute Basophils 0.1 10^3/uL (0-0.2); Absolute Eosinophils 0.2 10^3/uL (0-0.7); Absolute Lymphocytes 2.1 10^3/uL (1.2-3.4); Absolute Monocytes 0.6 10^3/uL (0.1-0.6); Absolute Neutrophils 6.1 10^3/uL (1.4-6.5); Hematocrit 44.8 % (39.0-52.0); Hemoglobin 15.2 g/dL (13.0-18.0); Mean Corp Hgb Conc. 33.9 g/dL (33.0-37.0); Mean Corpuscular Hgb 32.4 pg (27.0-31.0); Mean Corpuscular Volume 95.5 fL (80.0-94.0); Mean Platelet Volume 9.2 fL (7.4-10.4); Nucleated Red Blood Cells % 0 % (-); Platelet Count 244 10^3/uL (130-400); Red Blood Cell Count 4.69 10^6/uL (4.70-6.10); Red Cell Dist. Width 13.1 % (11.5-14.5); White Blood Cell Count 9.1 10^3/uL (4.8-10.8)
--- NOTE | 2023-11-02 08:29 | ED.GENMED ---
History of Present Illness
General
Chief Complaint: Seizure
Source: ambulance crew
Time Seen by Provider: 11/02/23 08:04
History of Present Illness
History of Present Illness:
78-year-old male presents to the emergency room after having seizure activity at home which lasted about 5 minutes. Patient has a known seizure disorder. 911 was called. Paramedics state the patient had 30 seconds of what they felt was seizure
activity en route. Activity ceased before they are able to give any medication. Upon arrival the patient is awake but nonverbal. Likely postictal.
Past History
Past History
ED Past Medical History: Cancer (Prostate), HTN, Seizures, Psychiatric (PTSD, anxiety, intentional overdose March 2022) and Other (Pulseless electrical activity March 2022)
ED Past Surgical History: Urological (Prostatectomy) and Other (Hernia repair)
Social History
Tobacco: Former smoker
Alcohol: Former
Drug: None
Personal:
Living: with family
Employment: Retired
Family History
Family History: Other (Reviewed and noncontributory)
Phy Exam
Physical Exam
Physical Exam:
General: Awake, nonverbal
Vitals: unremarkable
Head: Atraumatic
Eyes: Pupils equal, EOMI
Throat: Airway intact, no exudates
Neck: Trachea midline
Lungs: Clear and equal b/l
Heart: Regular rate, no murmurs
Abd: Soft, Nontender, No pulsatile mass
Neuro: Right facial droop, not spontaneously moving right upper extremity or lower extremity. Patient moves left side spontaneously.
Skin: Warm, dry, no rash
Extremities: pulses equal b/l, no edema
Course
Orders/Labs/Results
Orders:
Orders
11/02/23 08:03
Electrocardiogram (*1) Urgent
Reason for Study: Other
Other Reason for Exam: post seizure
EKG- Treatment ONCE
11/02/23 08:04
CMP [Comprehensive Metabolic Panel] Urgent
Complete Blood Count/With Diff Urgent
11/02/23 08:26
CT Head W/o Iv Contrast Urgent
Comment:
Reason For Exam: right sided facial droop with aphasia
11/02/23 08:35
Lacosamide [Vimpat] 200 mg PO NOW STA
11/02/23 08:38
Lorazepam [Ativan] 2 mg .ROUTE .STK-MED ONE
Lorazepam [Ativan] 2 mg IV NOW STA
11/02/23 08:43
Lacosamide [Vimpat] 200 mg .ROUTE .STK-MED ONE
11/02/23 09:00
Lacosamide [Vimpat] 200 mg IV Q12H
11/02/23 09:03
Valproate Sodium [Depacon] 1,000 mg 0.9% Sodium Chloride 50 ml [Nss] 50 ml IV NOW
11/02/23 09:10
Lorazepam [Ativan] 2 mg .ROUTE .STK-MED ONE
11/02/23 Lunch
Regular
At Your Request: Limited Participation
11/02/23 11:33
Admit/Transfer Patient As Directed
Co-Sign Provider:
Level of Care: Inpatient admission
Assign to:: Telemetry
Physician / Group: Nicole
Diagnosis: Seizures
Reason for Telemetry: Arrhythmia
Date to Stop Telemetry: 11/05/23
Time to Stop Telemetry: 11:00
Reason for Hospitalization: Seizure control
Expected length of stay greater than two midnights?: Yes
ELOS- Estimated Length of Stay in days: 2
I certify the patient meets the requirements for IP care: Yes
11/02/23 11:34
PRN Pain Medication Management As Directed
May give lesser potent ordered pain med per pt: Yes
preference::
Protocol:: Medication orders for pain may be administered in a
manner that supports deferring to patient preference
when the pt is:
- Requesting an ordered lesser potent pain medication.
Least to most potent pain medications are defined
as: acetaminophen < NSAID < tramadol < opioids
(morphine, oxycodone, hydromorphone).
- Requesting a lesser dose of the same medication IF
ORDERED.
- Requesting a less intrusive route of administration
if both routes are prescribed by the provider (PO <
IV).
11/02/23 11:37
Code Status As Directed
Resuscitation Status: Do not resuscitate
Reached after discussion with pt or family/Healthcare POA: Yes
DNR Bracelet Application ONCE
11/02/23 12:44
0.9% Sodium Chloride 1000 ml [Nss] 1,000 ml IV 100 mls/hr
Acetaminophen [Tylenol] 650 mg PO Q6HPRN PRN
Alprazolam [Xanax] 0.5 mg PO TIDPRN PRN
Docusate Sodium [Colace] 200 mg PO DAILYPRN PRN
Lorazepam [Ativan] 2 mg IV Q6HPRN PRN
11/02/23 12:44
NEUROLOGY CONSULT Routine
Consulting Provider: Anirudh Lloyd
Was physician already notified: Yes
Activity As Directed
Activity Level: Bedrest
DX Deep Vein Thrombosis Video Routine
11/02/23 16:00
Carbidopa/Levodopa [Sinemet 25-100] 1 tablet PO TID
11/02/23 18:00
Enoxaparin Sodium [Lovenox] 40 mg SC QPM
11/02/23 21:00
Valproate Sodium [Depacon] 500 mg 0.9% Sodium Chloride 50 ml [Nss] 50 ml IV Q12H
11/03/23 06:00
BMP [Basic Metabolic Panel] IN AM
11/03/23 08:00
Amlodipine [Norvasc] 5 mg PO DAILY
Ascorbic Acid [Vitamin C] 500 mg PO DAILY
Aspirin Low Dose EC [Aspir Low (Enteric Coated)] 81 mg PO DAILY
Cyanocobalamin [Vitamin B-12] 1,000 mcg PO DAILY
Escitalopram Oxalate [Lexapro] 10 mg PO DAILY
Polyethylene Glycol Powder [Miralax] 17 grams PO DAILY
Thiamine HCl [Vitamin B1] 100 mg PO DAILY
11/05/23 11:00
DC Protocol for Telemetry ONCE
Abnormal Lab Results
11/02/23 11/02/23
08:04 08:08
RBC 4.69 L 10^6/uL
(4.70-6.10)
MCV 95.5 H fL
(80.0-94.0)
MCH 32.4 H pg
(27.0-31.0)
Chloride 109 H mmol/L
(98-107)
Carbon Dioxide 10 L* mmol/L
(22-30)
Glucose 168 H mg/dl
(70-99)
POC Glucose 154 H mg/dl
(70-99)
11/02/23 08:04
11/02/23 08:04
Vital Signs
Initial and Last Documented VS:
Initial Vital Signs
Pulse Resp Pulse Ox
89 16 96
11/02/23 08:15 11/02/23 08:15 11/02/23 08:15
Last Documented Vital Signs
Temp Pulse Resp BP Pulse Ox
98.2 F 78 18 134/70 100
11/02/23 12:58 11/02/23 12:58 11/02/23 12:58 11/02/23 12:58 11/02/23 12:58
MDM/Problems Addressed
Differential Diagnosis Includes:
Status epilepticus, seizure with prolonged postictal phase, electrolyte abnormality, subdural
MDM/Problems Addressed:
Patient presents after having a seizure at home and a seizure in the ambulance en route to the hospital. Upon arrival here he appeared to have some right sided weakness suggestive of Igor's paralysis. However this quickly improved. He seemed to
be returning to baseline and was answering questions when he had another tonic-clonic seizure. He was given 2 mg of Ativan here for this. Seizure activity ceased spontaneously prior to the Ativan. Discussed patient's presentation neurology. They
also recommended loading with Depakote 1000 mg. Patient was given his morning dose of Vimpat 2 is IV as well. Patient exhibited no further tonic-clonic activity. He appeared to be postictal and sedated but stable. Patient will require
hospitalization for close monitoring. Patient's bicarb noted to be low on the initial set of labs. This is certainly due to the seizure activity.
*Radiology
Radiology exam reviewed: radiology read reviewed
*Pulse Oximetry
Patient hypoxic: no
*EKG
Interpreted by ED Provider?: Yes
Interpretation: normal
Heart Rate: 89
Rate: normal
Rhythm: sinus
Cullen: normal axis
Interval: normal interval
QRS Pattern: other
Ischemia: no ischemia
*Scallop Shucker Interpretation
Rate: normal
Interpretation: normal
Rhythm: sinus
*Critical Care Note
Total Time (30-74mins, 75-104mins- exclusive of procedures): 40 min
comment:
Critical care statement: A total of 40 minutes of critical care time was provided for this patient. This includes management of unstable vital signs, evaluation of the patient at bedside, reviewing the patient's pertinent medical records, discussion
with consultants, review of old EKGs and review of pertinent medical records. This time with separate from time utilized to perform the aforementioned documented procedures
ED Attending Note
-
Portions of this chart may have been created with voice recognition software.� Occasional wrong word or��sound alike� substitutions may have occurred due to the inherent limitations of voice recognition software.
Discharge Plan
Departure
Patient Disposition: Admit
Date of Disposition: 11/02/23
Time of Disposition: 10:01
Admit to: Telemetry
Presentation/result/management discussed w/ accepting MD/DO: Hospitalist
Condition: Fair
Discharge Problem:
Seizure
Interventions
Interventions:
*Risk Screen - Suicide Last Done: 11/02/23 08:17
*General Assessment Last Done: 11/02/23 08:17
*Neglect/Abuse Screening Last Done: 11/02/23 08:17
ED- Fall Risk Assessment Last Done: 11/02/23 08:17
*ED COVID-19 Vaccine History Last Done: 11/02/23 08:17
*Nursing Disposition Last Done: 11/02/23 12:29
ED- Cardiac Assessment Last Done: 11/02/23 08:17
ED- Neurological Assessment Last Done: 11/02/23 08:17
ED- Pulmonary Assessment Last Done: 11/02/23 08:17
Discharge Date and Time
Discharge Date/Time: 11/02/23 12:35
--- NOTE | 2023-11-02 08:31 | EDRN ---
awaiting for CT scan to notify this RN that is is clear to bring the pt to CT scan, the pts was brought back to the pts room, the pt is currently resting in stretcher in the lowest position, side rails up x2, call urrutia within reach, HOB
elevated, NSR in the 80's, RA Sp02 95%, no s/s of distress, will continue to monitor the pt closely
--- NOTE | 2023-11-02 08:33 | EDRN ---
Dr. Evans currently at the pts bedside speaking with the pt and the pts
--- NOTE | 2023-11-02 08:34 | EDRN ---
NIH being performed again with this RN and Dr. Evans
[2023-11-02 08:38] LABS: AST (SGOT) 24 U/L (17-59); Albumin 4.5 g/dl (3.5-5.0); Alkaline Phosphatase 76 U/L (38-126); Blood Urea Nitrogen 12 mg/dl (9-20); Calcium 9.6 mg/dl (8.4-10.2); Carbon Dioxide 10 mmol/L (22-30); Chloride 109 mmol/L (98-107); Estimated Creatinine Clearance 52 ml/min; Glucose 168 mg/dl (70-99); Potassium 4.2 mmol/L (3.5-5.1); Sodium 144 mmol/L (135-145); Total Protein 6.8 g/dl (6.3-8.2); eGFR > 60.00
[2023-11-02] MEDS: ATIVAN 2 MG IV (08:38)
[2023-11-02] MEDS: VIMPAT 200 MG IV ×2 (08:44→22:59)
--- NOTE | 2023-11-02 08:48 | EDRN ---
Dr. Evans entered the pts room and the pt started to seize, this RN ran into the pts room, per Dr. Evans the pt was to have Ativan 2mg IV, the seizure lasted around 30 seconds, Ativan 2mg IV has been administered, the pt is now postictal, 4L
NC was applied for Sp02 at 92% and Sp02 is now 97%, snooring respirations, Lacosamide IV was administered, comfort offered to the pts , second PIV being placed, the pt is resting in stretcher in the lowest position, side rails up x2, call urrutia
within reach, HOB elevated, will continue to monitor the pt closely
--- NOTE | 2023-11-02 09:22 | EDRN ---
this RN brought the pt to CT, stayed with the pt throughout the CT scan, and this RN brought the pt back to the pts room, the pt is resting in stretcher in the lowest position, side rails up x2, call urrutia within reach, HOB elevated, seizure pads on
the stretcher rails, the pt is currently still in NSR in the 70's, the pt is currently still on 4L NC with sp02 at 96%, the pts is currently still at the pts bedside, will continue to monitor the pt closely
[2023-11-02] MEDS: DEPACON 60 MG IV (09:36)
--- NOTE | 2023-11-02 09:42 | EDRN ---
medication reconciliation performed and confirmed with the pt
[2023-11-02 09:46] LABS: ALT (SGPT) 22 U/L (0-50)
--- NOTE | 2023-11-02 11:02 | EDRN ---
[facility] was stopped due to Dr. Garcia request, the pt is starting to come around and wake up and become more alert
--- NOTE | 2023-11-02 11:28 | EDRN ---
the pt is resting in stretcher in the lowest position, side rails up x2 call urrutia within reach, HOB elevated, the pt is currently in Sinus Bradycardia in the 50's, provider Dr. Evans notified of this, last BP 121/66 (83), the pt is currently
still on 4L NC Sp02 99%, no s/s of SOB, no s/s of distress, no seizure activity noted, the pt is currently still on fall precautions and seizure precautions, seizure pads have been on the pts bed, this RN wanted to do another NIH however per
Nathan he does not want NIH performed due to the pt being post ictal, awaiting for hospitalist to come to the pts bedside and admit the pt
--- NOTE | 2023-11-02 11:40 | HPS.HSE ---
Family Physician
-
Family Physician: Ramona Mckenzie
Chief Complaint
-
Recurrent seizures
History of Present Illness
78-year-old male with history of epilepsy had a recurrence of seizure around 7 AM this morning witnessed by his . She described tonic-clonic activity. Tongue biting. Then he subsequently became unconscious. Had another seizure en route in
the ambulance and 1 more in the emergency room. Given IV Ativan and loaded with Depakote in the ER. Currently sedated and difficult to assess. at the bedside. She states the last seizure was in December. Has been compliant with
antiepileptics at home.
denies any recent illnesses.
Medical History
Past Medical History
Past Medical History: Reports Other
Additional Past Medical History:
Epilepsy
Parkinson's disease
CAD
PAD
Prostate cancer
Essential hypertension
Orthostatic hypotension
Anxiety/depression
PTSD
Past Surgical History: Reports Other
Additional Past Surgical History:
Prostatectomy
Hernia repair
Social History
Tobacco: Former Smoker
Alcohol: Former
Drug: None
Personal:
Living: With Family
Family History
Family History: Not pertinent
Allergies / Home Medications
Allergies reflects when Allergies were last updated in [employer].
Home Medications with original date entered in [employer]
Allergy/Medication List:
Allergies
Allergy/AdvReac Type Severity Reaction Status Date / Time
morphine Allergy Itching Verified 06/24/23 17:13
shellfish derived Allergy Tongue Verified 06/24/23 17:13
Swelling
Fqnyprk-UZW-IqA Reductase Allergy Swelling Verified 06/24/23 17:13
Inhibitor
[Xbkrlec-Opt-Feb Reductase
Inhibitor]
Home Medications
ascorbic acid (vitamin C) 500 mg tablet (Vitamin C) 500 mg PO DAILY Supplement 09/12/22
aspirin 81 mg tablet,delayed release 81 mg PO DAILY Heart Disease/Condition 09/12/22
cyanocobalamin (vitamin B-12) 1,000 mcg tablet 1,000 mcg PO DAILY Supplement 09/12/22
psyllium 1 packet PO DAILY PRN Gastrointestinal Issue 11/28/22
lacosamide 200 mg tablet (Vimpat) 200 mg PO BID 30 days #60 tabs 11/30/22
escitalopram oxalate 10 mg tablet 10 mg PO DAILY Depression 04/08/23
thiamine HCl (vitamin B1) 100 mg tablet 100 mg PO DAILY 30 days #30 tabs 04/10/23
alprazolam 0.5 mg tablet (Xanax) 0.5 mg PO TIDPRN PRN anxiety, tremors #0 tabs 06/28/23
carbidopa 25 mg-levodopa 100 mg tablet 1 tab PO TID #90 tabs 06/28/23
amlodipine 5 mg tablet 5 mg PO DAILY 11/02/23
Review of Systems
-
Unable to obtain full review of systems at this time due to: Acuity
History Source: Family
A 12 point ROS was completed and negative except as noted: Yes
Physical Exam
Vital Signs
Vital Signs
Temp Pulse Resp BP Pulse Ox
98.5 F 63 20 121/66 95
11/02/23 08:17 11/02/23 11:01 11/02/23 11:01 11/02/23 11:01 11/02/23 11:01
Physical Exam
General: Well Developed, Well Nourished, No Apparent Distress and Comfortable
HEENT: NormoCephalic and Anicteric
Respiratory: Clear
Cardiac: S1/S2 and Regular Rhythm
GI: Soft, Non Tender and Non Distended
Musculoskeletal: No Clubbing, No Cyanosis and No Edema
Skin: Warm and Dry
Neuro: Sedated
Hematologic/Lymphatic: No Lymphadenopathy
Psych: Calm
Laboratory Results
-
11/02/23 08:04
11/02/23 08:04
Laboratory Results
Total Bilirubin 1.0 mg/dl (0.2-1.3) 11/02/23 08:04
AST 24 U/L (17-59) 11/02/23 08:04
ALT 22 U/L (0-50) 11/02/23 08:04
Alkaline Phosphatase 76 U/L (38-126) 11/02/23 08:04
Impression/Plan
-
Epilepsy with recurrent seizure -admit to telemetry, consult neurology. Continue Depakote and Vimpat per neurology. Ativan IV as needed seizures. Currently postictal.
CT head on admission without acute abnormality. Mild atrophy noted. Ventricles out of proportion to the sulci.
Does not spontaneously move right side on exam. Check brain MRI. Discussed with neurology.
Gap metabolic acidosis -anion gap of 25. Likely lactic acidosis related to seizures. IV fluids, recheck labs in the morning.
CAD -stable.
PAD
Parkinson's disease -continue Sinemet. states that he primarily gets around in a wheelchair. Minimal ambulation.
Essential hypertension
History of prostate cancer
DNR -confirmed with .
--- NOTE | 2023-11-02 12:27 | EDRN ---
this RN performed admission documentation, this RN also called the receiving nurse and notified them of this, this RN also notified them that paper report was going to be tubed up, the pts was updated on where the pt was going to go, the pt is
currently drowsy but arousable to verbal stimuli, pupils still currently 3 equal and brisk, the pt does not respond verbally however responds to some verbal commands, is not currently moving all extremities, and the pts right sided facial droop has
resolved, VS WNL, NSR in the 60-70's, the pt is currently still on 4L NC Sp02 100%, the pt is resting in stretcher in the lowest position, side rails up x2, call urrutia within reach, HOB elevated, will continue to monitor the pt closely
--- NOTE | 2023-11-02 12:31 | CON.NEURO4 ---
Consultation - Neurology 4
-
CONSULTING PHYSICIAN: Anirudh Lloyd MD
REFERRING PHYSICIAN: Hospitalist
DICTATED BY: Anirudh Lloyd MD
DATE/TIME OF REQUEST: 11/02/2023
DATE/TIME OF CONSULTATION: 11/02/2023 1200
Reason for Consultation: Seizure
History of Present Illness:
This is a 78 year old right handed male who has presented to the hospital with (chief complaint) of seizures. He has a past medical history of anxiety d/o alprazolam and bupropion overdose, depression, PTSD, former alcohol abuse, Parkinsons and
seizure presented to hospital with breakthrough seizures.
Patient's provides history and reports he has not had any recent medication changes or recent illnesses went to bed yesterday feeling fine yesterday has been feeling fine.� Around 7:30 AM this morning patient noted to have convulsive
generalized seizure activity with loss of consciousness and this persisted for around 10 to 15 minutes before EMS arrived and provided 2 mg IM Ativan for recurrent seizure activity in the ambulance. He received 2 mg IV lorazepam in the ED for
breakthrough seizure activity.�
In the ER he underwent CT scan of the head and was given 1000 mg IV Depakote and 200 mg IV lacosamide.� Patient's somnolent and postictal at this time not able provide history.
Patient had recent hospitalization after questionable seizure activity in Mar 2023 there was concern on whether or not this was seizure versus night terror versus stress related event, he ultimately left AMA was not felt he would need to necessarily
be started on chronic antiseizure medications.�
Pat was admitted in June 2023 for eval and management of orthostatic hypotension
Psychiatric consultation felt that patient would not need to necessarily be stopped on bupropion given low-dose at 150 mg and at low-dose generally bupropion not highly contributory to seizure
Past Medical History: Cardiac arrest 03/2022 secondary to intentional overdose with benzodiazepines/bupropion, PTSD, depression, anxiety, seizure disorder, former heavy alcohol use, HTN, HLD, PAD, prostate cancer, cognitive impairment, movement
disorder
Surgical History: Prostate and hernia repair
Family History: Mother gastric cancer
Social History: H/o alcoholism
Allergies: Statins, Morphine, shellfish
Home Medications: Addendum
Review of Symptoms:
�Per the HPI.�All systems are reviewed negative except above.
�-
�- Per the HPI. I am unable to obtain a complete review of systems�because of patient's inability to provide history.'
Vital Signs:
The patient has a Temp 36.9 C Pulse 72 Resp20 BP 137/74 Pulse Ox 100
Physical Exam:
The patient is afebrile, heart sounds S1 and S2 are (regular / irregular), and chest is clear to auscultation bilaterally.
Neurologic Examination:
The patient is postictal difficult to arouse. He is unable to follow commands or answer questions appropriately. Speech is unintelligible.
On cranial nerve assessment, pupils are 3 mm bilateral, round and reactive to light and accommodation. Visual arora are full. Extraocular movements are limited with Left gaze preference. Facial sensations are intact and bilaterally symmetrical.
There is facial asymmetry. Hearing is intact bilaterally to normal conversation volume. Tongue palate and uvula are midline. Sternocleidomastoid strengths are full bilaterally.
Motor strengths are 5/5 left upper and lower extremities on medical research [place] scale. There is limited right sided movement
There is no drift or involuntary movement noted.
Deep tendon reflexes are 2+ bilateral upper and lower extremities and Babinski is absent bilaterally.
Withdraws to touch, temperature and vibration are intact and bilaterally symmetrical. There was no extinction noted on double simultaneous stimulation.
Coordination Rombergs and Gait cannot be tested as pat is bedbound.
Lab Results: Addendum
Neuro Imaging: CT head reveals no acute disease or new lesion since previous scan
Impression:
Mr. MERLE RICK is a 78 year old M who has presented to the hospital with (symptoms/chief complaint) of recurrent seizures
Differentials for the patient's presentation include:
1. Seizure d/o
2. CVA with subsequent seizures
Recommendations:
1. EEG
2. Depakote 500 IV Q12
3. Vimpat 200mg IV Q 12
4. Seizure precautions
5. Telemetry
6. BP control
7. NPO
Discussed patient care with: Hospitalist
Allergies
-
Allergies
Allergy/AdvReac Type Severity Reaction Status Date / Time
morphine Allergy Itching Verified 06/24/23 17:13
shellfish derived Allergy Tongue Verified 06/24/23 17:13
Swelling
Bhsdkgk-XEB-LlW Reductase Allergy Swelling Verified 06/24/23 17:13
Inhibitor
[Novteyd-Otl-Rdd Reductase
Inhibitor]
Vital Signs and Labs
-
Vital Signs and Labs:
Vital Signs
Temp Pulse Resp BP Pulse Ox
36.9 C 72 20 137/74 100
11/02/23 08:17 11/02/23 12:15 11/02/23 11:01 11/02/23 12:00 11/02/23 12:15
Lab Results
11/02/23 08:04
11/02/23 08:04
Sodium 144 mmol/L (135-145) 11/02/23 08:04
Potassium 4.2 mmol/L (3.5-5.1) 11/02/23 08:04
BUN 12 mg/dl (9-20) 11/02/23 08:04
Glucose 168 mg/dl (70-99) H 11/02/23 08:04
Calcium 9.6 mg/dl (8.4-10.2) 11/02/23 08:04
Medications
-
Active Medications
Generic Name Dose Route Start Last Admin
Trade Name Freq PRN Reason Stop Dose Admin
Valproate Sodium 500 mg/ 55 mls @ 55 mls/hr 11/02/23 13:00
Sodium Chloride IV 11/30/23 12:59
Q12H OFELIA
Lacosamide 200 mg 11/02/23 09:00 11/02/23 08:44
Lacosamide (10 Mg/Ml) 200 Mg/20 Ml Vial IV 11/16/23 08:59 200 mg
Q12H OFELIA Administration
Lacosamide 200 mg 11/02/23 13:00
Lacosamide (10 Mg/Ml) 200 Mg/20 Ml Vial IV 11/16/23 12:59
Q12H OFELIA
Home Medications
�Medication �Instructions �Recorded
ascorbic acid (vitamin C) 500 mg 500 mg PO DAILY Supplement 09/12/22
tablet (Vitamin C)
aspirin 81 mg tablet,delayed 81 mg PO DAILY Heart 09/12/22
release Disease/Condition
cyanocobalamin (vitamin B-12) 1,000 mcg PO DAILY Supplement 09/12/22
1,000 mcg tablet
psyllium 1 packet PO DAILY PRN 11/28/22
Gastrointestinal Issue
lacosamide 200 mg tablet (Vimpat) 200 mg PO BID 30 days #60 tabs 11/30/22
escitalopram oxalate 10 mg tablet 10 mg PO DAILY Depression 04/08/23
thiamine HCl (vitamin B1) 100 mg 100 mg PO DAILY 30 days #30 tabs 04/10/23
tablet
alprazolam 0.5 mg tablet (Xanax) 0.5 mg PO TIDPRN PRN anxiety, 06/28/23
tremors #0 tabs
carbidopa 25 mg-levodopa 100 mg 1 tab PO TID #90 tabs 06/28/23
tablet
amlodipine 5 mg tablet 5 mg PO DAILY 11/02/23
[2023-11-02] MEDS: NSS 1000 IV (13:29)
--- NOTE | 2023-11-02 15:01 | CM ---
Patient seen asleep bedside, initial assessment completed by , Jessica. Per , patient and live in a first floor apartment, no steps to enter. Patient typically ambulates in a wheelchair, does have a walker at home. reports patient
is not on home O2. reports patient has history of VN, unsure agency name, has been to [facility] in the past. confirms PCP Ramona Mckenzie, pharmacy [facility] in [place], confirms prescription coverage. reports [facility] and works with the [place] office. CM will continue to follow for all discharge planning needs.
Plan; watch for VN needs, patient currently on O2, watch for home O2 needs.
[2023-11-02] MEDS: LOVENOX 40 MG SC (16:25)
[2023-11-02] MEDS: SINEMET 25-100 1 TABLET PO ×2 (16:25→21:01)
--- NOTE | 2023-11-02 16:30 | EEG.RPT ---
Electroencephalogram Report
Recording
Date of EE11/02/23
Type of EEG: Routine
Length of EEG recordin minutes
Done with Video Recording: Yes
Patient Status: Inpatient
Recording Conditions: Awake and Drowsy
Hyperventilation Performed: No
Photic Stimulation Performed: Yes
Report
LESS THAN 1 HOUR EEG REPORT
LESS THAN 1 HOUR EEG INTERPRETATION:
Abnormal EEG for age in wakefulness and drowsiness
Due to interhemispheric asymmetry with reduced amplitude from the Left hemisphere.
CLINICAL CORRELATION:
This study was suggestive of diffuse cortical dysfunction with left hemispheric injury and was without seizure activity.
Clinical correlation with neuroimaging is advised.
METHODS:
A 21 channel digitized electroencephalogram (EEG) was performed in the clinical neurophysiology laboratory. The 10/20 international system of electrode placement was used with ECG and lateral/vertical eye movements recorded. Video was recorded.
Persyst quantitative EEG analysis performed.
QUALITY OF STUDY:
Fair with beta muscle activity
ELECTROENCEPHALOGRAPHER IMPRESSION(S):
Background
Reduced anterior-posterior voltage gradient from Left hemisphere
Fair anterior-posterior voltage gradient bilaterally
Medium amplitude maximal theta frequency posterior background; asymmetric with greater slowing from the left hemisphere, more typically delta (or beta artifact)
Sleep
Drowsiness present
Photic Stimulation
Failed to activate the record
ECG
Unremarkable
[2023-11-02] MEDS: DEPACON 55 MG IV (20:54)
[2023-11-03 03:00] VITALS: BP 151/71
[2023-11-03 07:51] VITALS: BP 150/72
[2023-11-03 09:35] LABS: Blood Urea Nitrogen 13 mg/dl (9-20); Calcium 9.6 mg/dl (8.4-10.2); Carbon Dioxide 20 mmol/L (22-30); Chloride 108 mmol/L (98-107); Estimated Creatinine Clearance 53 ml/min; Glucose 94 mg/dl (70-99); Potassium 4.6 mmol/L (3.5-5.1); Sodium 141 mmol/L (135-145); eGFR > 60.00
[2023-11-03] MEDS: SINEMET 25-100 1 TABLET PO ×2 (09:44→16:20)
[2023-11-03] MEDS: DEPACON 55 MG IV (09:44)
[2023-11-03] MEDS: ASPIR LOW (ENTERIC COATED) 81 MG PO (09:46)
[2023-11-03] MEDS: VITAMIN B1 200 MG PO (09:46)
[2023-11-03] MEDS: VITAMIN B-12 1000 MCG PO (09:46)
[2023-11-03] MEDS: VITAMIN C 500 MG PO (09:46)
[2023-11-03] MEDS: LEXAPRO 10 MG PO (09:47)
[2023-11-03] MEDS: VIMPAT 200 MG IV (09:47)
[2023-11-03] MEDS: NORVASC 5 MG PO (09:47)
--- NOTE | 2023-11-03 10:37 | W.PN.HOSP.TC ---
Addendum entered and electronically signed by Td Rivera DO 11/03/23 12:50:
Brain MRI negative for stroke. Does show small vessel ischemic disease, moderate atrophy.
Updated on the phone regarding findings of MRI.
Still waiting for PT/OT assessment prior to discharge. Neurology feels that he can be discharged otherwise. Discussed with Dr. Lloyd.
Original Note:
Today's Communication/Plan
-
Await MRI
PT/OT
Assessment / Plan
Assessment / Plan
Gen-awake, alert, NAD
HEENT-NC, AT, anicteric, clear oral mm
Neck-supple
CV-reg, no M, +S1/S2
Lungs-clear B/L
Abd-soft, NT, ND
Ext-no edema
Musculoskeletal-no cyanosis, clubbing
Skin-warm and dry
Neuro-4+ out of 5 right upper extremity strength
Psych-calm, cooperative
Epilepsy with recurrent seizure -no further seizures in the hospital. Continue Depakote and Vimpat per neurology. Ativan IV as needed seizures.
CT head on admission without acute abnormality. Mild atrophy noted. Ventricles out of proportion to the sulci.
EEG shows interhemispheric asymmetry with reduced amplitude from the left hemisphere. Suggestive of diffuse cortical dysfunction with left hemispheric injury but without seizure activity.
Mild right-sided weakness on exam. Check brain MRI. Discussed with neurology.
Gap metabolic acidosis - Likely lactic acidosis related to seizures. Bicarbonate improving.
CAD -stable.
PAD
Parkinson's disease -continue Sinemet. states that he primarily gets around in a wheelchair. Minimal ambulation.
Essential hypertension
History of prostate cancer
Anxiety disorder -continue as needed Xanax.
DNR -confirmed with .
PT/OT
updated at the bedside.
Anticipated Discharge: Within 24 hours
Subjective/Interval History
-
Date of Service: November 03, 2023
Patient seen and examined. Awake today and alert, no complaints. at the bedside. Does not remember events surrounding his seizures.
Objective Data
-
Labs:
Laboratory Results
11/03/23
08:48
Sodium 141
Potassium 4.6
Chloride 108 H
Carbon Dioxide 20 L
BUN 13
Creatinine 1.0
Glucose 94
Calcium 9.6
Vital Signs:
Vital Signs
Temp Pulse Resp BP Pulse Ox
98.9 F 77 16 150/72 99
11/03/23 07:51 11/03/23 09:47 11/03/23 07:51 11/03/23 09:47 11/03/23 07:51
I&O
11/02/23 11/03/23 11/04/23
06:59 06:59 06:59
Intake Total 875 / 875
Balance 875 / 875
Review of Systems
-
History Source: Patient and Family
All other systems: Reviewed and negative
[2023-11-03] MEDS: XANAX 0.5 MG PO (10:49)
[2023-11-03 11:11] VITALS: BP 155/72
--- NOTE | 2023-11-03 11:32 | W.PN.NEURO.1 ---
Today's Communication / Plan
-
Pat may go home when stable on Depakote 500mg BID
Vimpat 200mg BID
Neuro Assessment/Plan
Assessment
78 yr. old male with h/o NPH seizure d/o on Vimpat who had a breakthrough seizure
Plan
Continue Depakote 500mg BID
Continue Vimpat 200mg BID
Subjective/Objective
Subjective Data
Date of Service: November 03, 2023
Pat has recovered, weakness has resolved
Objective Data
Vital Signs
Temp Pulse Resp BP Pulse Ox
36.8 C 71 20 155/72 98
11/03/23 11:11 11/03/23 11:11 11/03/23 11:11 11/03/23 11:11 11/03/23 11:11
Lab Results
11/02/23 08:04
11/03/23 08:48
Sodium 141 mmol/L (135-145) 11/03/23 08:48
Potassium 4.6 mmol/L (3.5-5.1) 11/03/23 08:48
BUN 13 mg/dl (9-20) 11/03/23 08:48
Glucose 94 mg/dl (70-99) 11/03/23 08:48
Calcium 9.6 mg/dl (8.4-10.2) 11/03/23 08:48
Patient Allergies
morphine Allergy (Verified 06/24/23 17:13)
Itching
shellfish derived Allergy (Verified 06/24/23 17:13)
Tongue Swelling
Mcrcyvd-OGY-GkK Reductase Inhibitor [Bcryqka-Ymk-Keh Reductase Inhibitor] Allergy (Verified 06/24/23 17:13)
Swelling
Physical Exam
-
General: Well Developed, Well Nourished, No Apparent Distress and Appears Chronically Ill
Eyes: Able to visualize OU, Round OU, Volin Conjunctivae, No Ptosis and PERRLA
HEENT: Normocephalic and Atraumatic
Neck: No Bruits Bilaterally and Full Range of Motion
Respiratory: Clear to Auscultation
Cardiac: Regular Rhythm and No Murmur
GI: Normal Bowel Sounds
Skin: Unremarkable
Extremities: No Clubbing, No Cyanosis and No Edema
Psych: Confused and Apparent Dementia
Extended Neurological Exam
Mood & Affect: Mood Unremarkable and Affect Unremarkable
Attention Span & Concentration: Awake, Alert, Mild Difficulty with 2 Step Request and Unable to spell 5 letter words forwards and backwards
Memory: Reduced, Unable to Recall and Vague
Tremor: At Rest (Left hand pill rolling tremor)
Cranial Nerve II: Left Eye: Pupillary Reactivity Unremarkable, Pupillary Size Unremarkable and Visual Arias Grossly Intact
Cranial Nerve II: Right Eye: Pupillary Reactivity Unremarkable, Pupillary Size Unremarkable and Visual Arias Grossly Intact
Cranial Nerves III, IV, : Extraocular Movement: Extraocular Movement Full in all Directions
Cranial Nerve V: Facial Sensation: Intact to Light Touch
Cranial Nerve VII: Facial Symmetry: Normal Facial Symmetry
Cranial Nerve VIII: Hearing: Grossly Reduced
Cranial Nerves IX, X: Palate Movement: Palate Elevation Symmetric
Cranial Nerve XI: Shoulder Shrug: Unremarkable
Cranial Nerve XII: Tongue Protusion: Midline
Muscle Strength, Overall: Full Throughout
Muscle Bulk & Tone: Bulk Unremarkable and Tone Unremarkable
Pronator Drift: No Drift in Upper Extremities and No Drift in Lower Extremities
Deep Tendon Reflexes: Unremarkable Throughout
Cold Sensation: Unremarkable
Vibration Sensation: Unremarkable
Touch Sensation: Unremarkable
Coordination: Hdybje-hjfv-zktbvu Testing Unremarkable
Babinski Sign: Absent Bilaterally
Gait & Station: Romberg Test Positive and Wide Based
--- NOTE | 2023-11-03 14:46 | W.DS.TRANS ---
DC Summary - Enrollment Processor
-
Discharge Instructions:
Discharge Diagnosis/Procedures Recurrent seizures
Diet Regular
Activity As tolerated
Driving Restrictions No driving
Bathing Restrictions None
Other Services [facility]
Instructions:
Stand-Alone Forms:
Changes to Home Medications: No
Discharge Medications:
DC Medications w/original date entered in [facility]
ascorbic acid (vitamin C) 500 mg tablet (Vitamin C) 500 mg PO DAILY Supplement 09/12/22
aspirin 81 mg tablet,delayed release 81 mg PO DAILY Heart Disease/Condition 09/12/22
cyanocobalamin (vitamin B-12) 1,000 mcg tablet 1,000 mcg PO DAILY Supplement 09/12/22
psyllium 1 packet PO DAILY PRN Gastrointestinal Issue 11/28/22
lacosamide 200 mg tablet (Vimpat) 200 mg PO BID 30 days #60 tabs 11/30/22
escitalopram oxalate 10 mg tablet 10 mg PO DAILY Depression 04/08/23
thiamine HCl (vitamin B1) 100 mg tablet 100 mg PO DAILY 30 days #30 tabs 04/10/23
alprazolam 0.5 mg tablet (Xanax) 0.5 mg PO TIDPRN PRN anxiety, tremors #0 tabs 06/28/23
carbidopa 25 mg-levodopa 100 mg tablet 1 tab PO TID #90 tabs 06/28/23
amlodipine 5 mg tablet 5 mg PO DAILY Blood Pressure 11/02/23
divalproex 500 mg tablet,delayed release (Depakote) 500 mg PO BID #60 tabs 11/03/23
Home Medication Changes
Pending Results: No
[2023-11-03 15:27] VITALS: BP 152/70; PULSE 72; O2SAT 98
--- NOTE | 2023-11-03 15:36 | CM ---
Patient seen with , discussed PT recommendations of home health. Patient and agreeable to referral to [facility]. IMM reviewed, signed, placed in chart. Patient for discharge today. CM will continue to follow for all discharge planning needs.
Plan; home with [facility] pending acceptance, referral placed.
[2023-11-03 15:45] VITALS: BP 137/64
== END 2023-11-03 16:10 | disposition home health service (06) | DRG 101 ==
LOC: 4 WEST ACU 11:56
PROVIDERS: ADMITTING PHYSICIAN Hospitalist; CONSULT PHYSICIAN Psychiatry & Neurology Neurology; EMERGENCY PHYSICIAN Emergency Medicine; FAMILY PHYSICIAN Family Medicine
DX: G40.909 Epilepsy, unspecified, not intractable, without status epilepticus (principal); E87.20 Acidosis, unspecified; I25.10 Atherosclerotic heart disease of native coronary artery without angina pectoris; G20.A1 Parkinson's disease without dyskinesia, without mention of fluctuations; I73.9 Peripheral vascular disease, unspecified; I10 Essential (primary) hypertension; F43.10 Post-traumatic stress disorder, unspecified; Z66 Do not resuscitate; Z85.46 Personal history of malignant neoplasm of prostate; Z87.891 Personal history of nicotine dependence
CPT/HCPCS: 70450; 70551; 80048; 80053; 82962; 85025; 93005; 95816; 96365; 96375; 97162; 99291; C9254

== ENCOUNTER 2023-12-13 17:36 | Emergency (ER) | payer OTHER, SELFPAY ==
[2023-12-13 17:37] VITALS: BP 148/62
[2023-12-13 17:41] VITALS: BMI 27.8
[2023-12-13 17:55] LABS: % Basophils 0.7 % (0-2); % Eosinophils 2.6 % (0-6); % Immature Granulocytes 0.2 % (0-0.5); % Monocytes 9.2 % (1.7-9.3); % Neutrophils 61.3 % (42.2-75.2); Absolute Eosinophils 0.2 10^3/uL (0-0.7); Absolute Lymphocytes 1.5 10^3/uL (1.2-3.4); Absolute Monocytes 0.5 10^3/uL (0.1-0.6); Absolute Neutrophils 3.6 10^3/uL (1.4-6.5); Hematocrit 39.5 % (39.0-52.0); Hemoglobin 13.4 g/dL (13.0-18.0); Mean Corp Hgb Conc. 33.9 g/dL (33.0-37.0); Mean Corpuscular Hgb 32.3 pg (27.0-31.0); Mean Corpuscular Volume 95.2 fL (80.0-94.0); Mean Platelet Volume 10.1 fL (7.4-10.4); Nucleated Red Blood Cells % 0 % (-); Platelet Count 149 10^3/uL (130-400); Red Blood Cell Count 4.15 10^6/uL (4.70-6.10); Red Cell Dist. Width 14.2 % (11.5-14.5); White Blood Cell Count 5.8 10^3/uL (4.8-10.8)
[2023-12-13 18:00] VITALS: BP 130/54
[2023-12-13 18:13] LABS: ALT (SGPT) < 10 U/L (0-50); AST (SGOT) 20 U/L (17-59); Alkaline Phosphatase 46 U/L (38-126); Blood Urea Nitrogen 16 mg/dl (9-20); Calcium 8.9 mg/dl (8.4-10.2); Carbon Dioxide 26 mmol/L (22-30); Chloride 104 mmol/L (98-107); Estimated Creatinine Clearance 50 ml/min; Glucose 148 mg/dl (70-99); Potassium 4.9 mmol/L (3.5-5.1); Sodium 140 mmol/L (135-145); Total Bilirubin 0.6 mg/dl (0.2-1.3); Total Protein 6.3 g/dl (6.3-8.2); eGFR > 60.00
[2023-12-13 18:24] LABS: Troponin I < 0.012 ng/ml
[2023-12-13 19:00] VITALS: BP 138/52
--- NOTE | 2023-12-13 19:00 | ED.GENMED ---
History of Present Illness
General
Chief Complaint: Change Level of Consciousness
Source: patient
Time Seen by Provider: 12/13/23 18:36
History of Present Illness
History of Present Illness:
78-year-old male brought to the emergency room for evaluation after having an episode at home where it look like he might pass out. Patient was sitting in his wheelchair when he began expressing to his he was not feeling well. Patient states
he was feeling dizzy and lightheaded. He appeared pale and sweaty and leaned to the side but did not completely lose consciousness. After several minutes patient has returned to his baseline. He has no complaints at this time. Patient does have
a history of Parkinson's disease and is compliant with his medication. He has had increased urinary frequency recently prompting his primary care doctor to start Keflex. He has not had a urinalysis. He did not have a fever. He denies any
dysuria. He is drinking plenty of fluids. also noted some mild swelling in his ankles which is new. Specifically patient denies having any chest pain, palpitations or shortness of breath prior to the event. He does not have any pleuritic
type chest pain.
Past History
Past History
ED Past Medical History: Cancer (Prostate), HTN, Seizures, Psychiatric (PTSD, anxiety, intentional overdose March 2022) and Other (Pulseless electrical activity March 2022)
ED Past Surgical History: Urological (Prostatectomy) and Other (Hernia repair)
Social History
Tobacco: Former smoker
Alcohol: Former
Drug: None
Personal:
Living: with family
Employment: Retired
Family History
Family History: Other (Reviewed and noncontributory)
Phy Exam
Physical Exam
Physical Exam:
General: Awake, Alert, Oriented X3. No acute distress.
Vitals: unremarkable
Head: Atraumatic
Eyes: Pupils equal, EOMI
Throat: Airway intact, no exudates
Neck: Trachea midline
Lungs: Clear and equal b/l
Heart: Regular rate, no murmurs
Abd: Soft, Nontender, No pulsatile mass
Neuro: No focal weakness
Skin: Warm, dry, no rash
Extremities: pulses equal b/l, 1+ edema
Course
Orders/Labs/Results
Orders:
Orders
12/13/23 17:40
Electrocardiogram (*1) Urgent
Reason for Study: Syncope
EKG- Treatment ONCE
12/13/23 17:45
Complete Blood Count/With Diff Urgent
Comprehensive Metabolic Panel Urgent
Lactic Acid Urgent
Troponin I Urgent
Abnormal Lab Results
12/13/23
17:45
RBC 4.15 L 10^6/uL
(4.70-6.10)
MCV 95.2 H fL
(80.0-94.0)
MCH 32.3 H pg
(27.0-31.0)
Glucose 148 H mg/dl
(70-99)
12/13/23 17:45
12/13/23 17:45
Vital Signs
Initial and Last Documented VS:
Initial Vital Signs
Temp Pulse Resp BP Pulse Ox
97.8 F 92 16 148/62 98
12/13/23 17:37 12/13/23 17:37 12/13/23 17:37 12/13/23 17:37 12/13/23 17:37
Last Documented Vital Signs
Temp Pulse Resp BP Pulse Ox
97.8 F 76 16 130/54 99
12/13/23 17:37 12/13/23 18:00 12/13/23 18:00 12/13/23 18:00 12/13/23 18:00
MDM/Problems Addressed
Differential Diagnosis Includes:
Vasovagal episode, dysrhythmia, anemia, autonomic instability from Parkinson's disease
MDM/Problems Addressed:
Patient appears at his baseline at the time of my evaluation. He offers no complaints. EKG shows no acute ischemic changes or any evidence for dysrhythmia. Patient observed on the search planner without any abnormalities noted. Labs are all
very reassuring. He is not anemic. Troponin is normal. Patient is anxious to be discharged at the time of my evaluation. I suggested we obtain a urinalysis to confirm the presence of a UTI. He is only had 2 doses of Keflex was unlikely that his
urine will be completely clean at this point. Patient refuses. I think it is reasonable for the patient be discharged as he does not have any risk factors for an acute dysrhythmia. His labs are normal. His vital signs are normal. Patient's
is quite similar with a seizure disorder which is all today did not resemble seizure.
Chronic conditions affecting care: HTN and Neurological disorder (Seizure disorder, Parkinson's disease)
*Pulse Oximetry
Patient hypoxic: no
*EKG
Heart Rate: 75
Rate: normal
Rhythm: sinus
[place]: normal axis
Interval: normal interval
QRS Pattern: normal QRS
Ischemia: no ischemia
*Judge Clerk Interpretation
Rate: normal
Interpretation: normal
Heart Rate: 75
Rhythm: sinus
*Critical Care Note
Total Time (30-74mins, 75-104mins- exclusive of procedures): Not Applicable
ED Attending Note
-
Portions of this chart may have been created with voice recognition software.� Occasional wrong word or��sound alike� substitutions may have occurred due to the inherent limitations of voice recognition software.
Discharge Plan
Departure
Patient Disposition: Home (Routine Discharge)
Date of Disposition: 12/13/23
Time of Disposition: 19:00
Patient with high blood pressure during this ER visit?: Yes
Condition: Good
Discharge Problem:
Near syncope
Instructions: Near Fainting (DC)
Prescriptions:
No Action
cyanocobalamin (vitamin B-12) 1,000 mcg Tablet
1,000 mcg PO DAILY
aspirin 81 mg Tablet,Delayed Release (Dr/Ec)
81 mg PO DAILY
ascorbic acid (vitamin C) [Vitamin C] 500 mg Tablet
500 mg PO DAILY
psyllium Packet
1 packet PO DAILY PRN (Reason: Gastrointestinal Issue)
lacosamide [Vimpat] 200 mg tablet
200 mg PO BID 30 Days Qty: 60 0RF
escitalopram oxalate 10 mg tablet
10 mg PO DAILY
thiamine HCl (vitamin B1) 100 mg Tablet
100 mg PO DAILY 30 Days Qty: 30 0RF
carbidopa-levodopa 25-100 mg Tablet
1 tab PO TID Qty: 90 0RF
alprazolam [Xanax] 0.5 mg Tablet
0.5 mg PO TIDPRN PRN (Reason: anxiety, tremors) Qty: 0 0RF
Patient Comments:
11/02/2023: last filled 09/03/23, 90 tabs for 30 days
amlodipine 5 mg tablet
5 mg PO DAILY
divalproex [Depakote] 500 mg tablet,delayed release (DR/EC)
500 mg PO BID Qty: 60 0RF
Activity Restrictions/Additional Instructions:
Please follow up with your doctor as scheduled on Saturday
Interventions
Interventions:
*Risk Screen - Suicide Last Done: 12/13/23 17:42
*General Assessment Last Done: 12/13/23 17:42
*Neglect/Abuse Screening Last Done: 12/13/23 17:42
*ED COVID-19 Vaccine History Last Done: 12/13/23 17:41
ED- Cardiac Assessment Last Done: 12/13/23 17:43
ED- Neurological Assessment Last Done: 12/13/23 17:43
ED-Psychological Assessment Last Done: 12/13/23 17:43
ED- Pulmonary Assessment Last Done: 12/13/23 17:43
Discharge Date and Time
Print Language: ITALIAN
== END 2023-12-13 19:35 | disposition home or self-care (01) ==
LOC: EMR 17:36
PROVIDERS: EMERGENCY PHYSICIAN Emergency Medicine; FAMILY PHYSICIAN Family Medicine
DX: R55 Syncope and collapse (principal); R42 Dizziness and giddiness; G20.A1 Parkinson's disease without dyskinesia, without mention of fluctuations; I10 Essential (primary) hypertension; G40.909 Epilepsy, unspecified, not intractable, without status epilepticus; F41.9 Anxiety disorder, unspecified; F43.10 Post-traumatic stress disorder, unspecified; Z86.74 Personal history of sudden cardiac arrest; Z87.891 Personal history of nicotine dependence; Z90.79 Acquired absence of other genital organ(s); Z91.51 Personal history of suicidal behavior
CPT/HCPCS: 99283; 80053; 83605; 84484; 85025; 93005